=== PATIENT | male | born 1945 | race African-American/Black ===

== ENCOUNTER 2017-04-04 10:05 | Emergency (ER) | payer MEDICARE, BC ==
[2017-04-04 10:38] LABS: #Eosinphils 0.1 thou/uL (0.0-0.7); #Lymphocytes 1.2 thou/uL (1.20-3.40); #Monocytes 0.3 thou/uL (0.11-0.59); #Neutrophils 3.4 thou/uL (1.40-6.50); %Basophils 0.6 % (0.0-1.0); %Eosinophils 2.5 % (0.0-10.0); %Lymphocytes 23.8 % (21.0-51.0); %Monocytes 5.3 % (0.0-10.0); %Neutrophils 67.8 % (42.0-75.0); Hemoglobin 14.3 g/dL (14.0-18.0); Mean Corpuscular HGB CONC 32.6 g/dL (32.0-36.0); Mean Corpuscular Hemoglobin 29.1 pg (27.0-31.0); Mean Corpuscular Volume 89.3 fl (80.0-94.0); Mean Platelet Volume 9.4 fL (7.4-10.4); Platelet Count 145 thou/uL (130-400); RBC Distribution Width 12.7 % (11.5-14.5); Red Blood Cell (RBC) Count 4.91 mill/uL (4.70-6.10); White Blood Cell (WBC) Count 5.1 thou/uL (4.8-10.8)
--- NOTE | 2017-04-04 10:47 | RAD ---
PORTABLE AP CHEST: Date: 04/04/17 HISTORY: Dyspnea. Generalized pitting edema, which has worsened over the past 2 weeks. History of CHF. Patient has shortness of breath. COMPARISON: 01/05/16. FINDINGS: The cardiac silhouette and pulmonary vasculature are within normal limits. The lungs remain clear. Th ere has been no interval change from prior exam. IMPRESSION: No acute cardiopulmonary process. POS: [facility]
[2017-04-04 11:00] LABS: ALT (SGPT) 24 U/L (8-55); AST (SGOT) 20 U/L (5-34); Albumin 3.8 g/dL (3.4-4.8); Alkaline Phosphatase 166 U/L (40-150); Anion Gap 13 mmol/L (10-20); BUN (Urea Nitrogen) 12 mg/dL (8.4-25.7); Bilirubin, Total 0.5 mg/dL (0.2-1.2); CK (CPK) 245 U/L (30-200); Calc. Creatinine Clearance 0 mL/min (70-130); Calcium 9.3 mg/dL (7.8-10.44); Carbon Dioxide 26 mmol/L (23-31); Chloride 106 mmol/L (98-107); Estimated GFR-MDRD 44; Globulin 3.8 g/dL (2.4-3.5); Glucose 96 mg/dL (83-110); Potassium 3.3 mmol/L (3.5-5.1); Protein, Total 7.6 g/dL (5.8-8.1); Sodium 142 mmol/L (136-145)
[2017-04-04 11:06] LABS: CKMB 1.4 ng/mL (0-6.6); Troponin I 0.087 ng/mL (< 0.028)
--- NOTE | 2017-04-04 13:20 | ULT ---
ULTRASOUND WITH DOPPLER DUPLEX VENOUS LEFT UPPER EXTREMITY: Date: 04/04/17 HISTORY: 72-year-old male with left upper extremity edema for over 1 week. TECHNIQUE: Castro scale, color flow, and spectral analysis, of major veins of left upper extremity. All veins were subjected to compression, except for the subclavian. FINDINGS: The left cephalic vein is not visualized. The left radial, ulnar, basilar, brachial, axillary, subcla vian, and internal jugular veins are patent and clear. There is edema in the soft tissues. IMPRESSION: 1. No evidence of thrombosis of left upper extremity veins. 2. Soft tissue edema of the left upper extremity. 3. Left cephalic vein not visualized. POS: [facility]
--- NOTE | 2017-04-18 17:04 | EKG ---
Test Reason : Blood Pressure : / mmHG Vent. Rate : 062 BPM Atrial Rate : 062 BPM P-R Int : 214 ms QRS Dur : 094 ms QT Int : 448 ms P-R-T Axes : 053 -31 -05 degrees QTc Int : 454 ms Sinus rhythm with 1st degree A-V block Possible Left atrial enlargement Left axis deviation Inferior infarct , age undetermined Abnormal ECG Confirmed by MEMO PAL D.O. ([id number]), map editor CAMI LEE ([id number]) on 04/18/2017 5:04:02 PM Referred By: Confirmed By:MEMO PAL D.O.
== END 2017-04-04 13:15 | disposition home or self-care (01) ==
LOC: ERS 10:05
DX: I89.0 Lymphedema, not elsewhere classified (principal)
CPT/HCPCS: 36415; 71045; 80053; 82550; 82553; 83880; 84484; 85025; 93005

== ENCOUNTER 2017-06-23 18:56 | Observation (INO) | payer MEDICARE, BC ==
[2017-06-23] MEDS ORDERED: Furosemide 40 MG/4 ML VIAL ONE (20:12)
[2017-06-23 20:21] LABS: #Eosinphils 0.2 thou/uL (0.0-0.7); #Lymphocytes 1.5 thou/uL (1.20-3.40); #Monocytes 0.4 thou/uL (0.11-0.59); #Neutrophils 2.9 thou/uL (1.40-6.50); %Basophils 0.8 % (0.0-1.0); %Eosinophils 3.4 % (0.0-10.0); %Lymphocytes 30.2 % (21.0-51.0); %Monocytes 7.2 % (0.0-10.0); %Neutrophils 58.5 % (42.0-75.0); Hemoglobin 13.5 g/dL (14.0-18.0); Mean Corpuscular HGB CONC 32.6 g/dL (32.0-36.0); Mean Corpuscular Hemoglobin 28.7 pg (27.0-31.0); Mean Corpuscular Volume 87.8 fl (80.0-94.0); Mean Platelet Volume 9.6 fL (7.4-10.4); Platelet Count 148 thou/uL (130-400); RBC Distribution Width 12.6 % (11.5-14.5); Red Blood Cell (RBC) Count 4.72 mill/uL (4.70-6.10); White Blood Cell (WBC) Count 4.9 thou/uL (4.8-10.8)
--- NOTE | 2017-06-23 20:32 | RAD ---
PORTABLE UPRIGHT FRONTAL CHEST RADIOGRAPH 06/23/17 COMPARISON: 04/04/17 HISTORY: Fluid overload, edema, swelling and dyspnea. FINDINGS: Heart and mediastinal contours are stable. There is no pneumothorax, pleural fluid, focal consolidati on or alveolar edema. IMPRESSION: No acute findings. POS: [facility]
[2017-06-23 20:43] LABS: ALT (SGPT) 21 U/L (8-55); AST (SGOT) 22 U/L (5-34); Albumin 3.7 g/dL (3.4-4.8); Alkaline Phosphatase 142 U/L (40-150); Anion Gap 12 mmol/L (10-20); BUN (Urea Nitrogen) 10 mg/dL (8.4-25.7); Bilirubin, Total 0.7 mg/dL (0.2-1.2); CK (CPK) 333 U/L (30-200); Calc. Creatinine Clearance 0 mL/min (70-130); Carbon Dioxide 27 mmol/L (23-31); Chloride 104 mmol/L (98-107); Estimated GFR-MDRD 49; Globulin 3.6 g/dL (2.4-3.5); Glucose 92 mg/dL (83-110); Lipase 25 U/L (8-78); Protein, Total 7.3 g/dL (5.8-8.1); Sodium 140 mmol/L (136-145)
[2017-06-23 20:47] LABS: CKMB 1.3 ng/mL (0-6.6)
[2017-06-23 21:04] LABS: Potassium 2.8 mmol/L (3.5-5.1)
[2017-06-23] MEDS ORDERED: Potassium Chloride 20 MEQ TAB ONE (21:05)
[2017-06-23] MEDS ORDERED: Potassium Chloride 20 MEQ in Premix Bag 1 BAG IVPB SCH (21:15)
[2017-06-23] MEDS ORDERED: Acetaminophen 650 MG Suppository PR PRN (23:29)
[2017-06-23] MEDS ORDERED: Acetaminophen 325 MG TAB PO PRN (23:29)
[2017-06-23] MEDS ORDERED: Bisacodyl 5 MG TAB PO PRN (23:29)
--- NOTE | 2017-06-24 00:34 | HP ---
PRIMARY CARE PHYSICIAN: Dr. Winter Bailey. CHIEF COMPLAINT: Leg swelling. HISTORY OF PRESENT ILLNESS: Mr. Younger is a pleasant 72-year-old gentleman who was seen at [facility] on 06/23/2017. He reports that he has had bilateral lower extremity swelling for at least several months. It has be en progressively worsening. He also reports having left upper extremity swelling for several months. He reports pain in the left lower extremity, over the last several days, sharp, nonradiating, 1-2/1 0. No known aggravating or relieving factors, accompanied by swelling of both lower extremities. Ramón s reports that his lower extremity swelling progressed to his thighs. She therefore called his primary care provider and was advised to go to the emergency room. REVIEW OF SYSTEMS: All other systems were reviewed and noted to be negative except for the positives noted above. PAST MEDICAL HISTORY: Significant for recurrent TIA, chronic right lower extremity cellulitis, dysli pidemia, chronic kidney disease stage 3, chronic lymphedema, nonsustained ventricular tachycardia, di astolic dysfunction, first-degree AV block, dementia, CVA with residual left-sided weakness, rhabdomy olysis, dysphagia, thrombocytopenia, labile hypertension, and hypothyroidism. PAST SURGICAL HISTORY: Hernia repair and history of cyst removal from the hand. PSYCHIATRIC HISTORY: Anxiety and depression. SOCIAL HISTORY: Patient denies tobacco use, alcohol use, or recreational drug use. FAMILY HISTORY: Significant for heart disease in both his parents. ALLERGIES: No known drug allergies. CURRENT MEDICATIONS: Lisinopril 5 mg 2 times a day, atorvastatin 20 mg at bedtime, Protonix 40 mg da dylan, ferrous sulfate 325 mg daily, donepezil 10 mg daily, amlodipine 10 mg daily, clonidine 0.1 mg 2 times a day, levothyroxine 25 mcg daily. CODE STATUS: I discussed his code status. He is FULL CODE. Substitute decision maker is his . PHYSICAL EXAMINATION: GENERAL: Mr. Younger is awake and alert, not in acute distress. VITAL SIGNS: Blood pressure is 179/109, pulse is 83, he is breathing at rate of 17 and saturating 95 % on room air. He is afebrile. EYES: No scleral icterus, no conjunctival pallor. ENT: Moist mucosal membranes, no oropharyngeal erythema or exudates. NECK: Supple, nontender, normal range of movement, trachea is midline. I did not appreciate any jug ular venous distention. RESPIRATORY: Accessory muscles of breathing are not active. Chest wall movements are symmetric bila terally. Lungs are clear to auscultation without wheeze, rhonchi, or crepitations. CARDIOVASCULAR: S1 and S2 are heard, regular. Peripheral pulses palpable in the upper extremities. No carotid bruit, no pericardial rub. ABDOMEN: Soft, nontender, bowel sounds heard, no hepatomegaly, no splenomegaly. NEUROLOGIC: Cranial nerves II-XII intact. He has left-sided weakness. MUSCULOSKELETAL: Patient is able to move all 4 extremities. He has bilateral lower extremity lymphe tamela in the legs, he also has swelling of thighs bilaterally. SKIN: Lymphedema in both lower extremities. LYMPHATIC: No cervical lymphadenopathy. PSYCHIATRIC: Normal mood, normal affect, patient is oriented to person and place, not to time. LABORATORY DATA: Mr. Younger's labs and investigations were reviewed. I reviewed his electrocardiogra m, which shows sinus bradycardia, no ST changes to suggest an acute coronary syndrome. I also review ed his chest x-ray, which does not show any pulmonary infiltrates. He has a normal white count, norm ocytic anemia with hemoglobin 13.5, normal platelet count, normal sodium, decreased potassium of 2.8, normal blood urea nitrogen, elevated creatinine of 1.67, last known creatinine 1.85 in 03/2017, unre markable liver profile including normal albumin, normal lipase, slightly elevated BNP of 115.5, last known to BNP 71.5 in 03/2017 and indeterminate troponin of 0.100, I note that he has had indeterminat e troponins in the past as well and slightly elevated CK of 333. ASSESSMENT AND PLAN: Mr. Younger is a pleasant 72-year-old gentleman who was seen at [facility] on 06/23/2017. His problem list includes: 1. Hypokalemia: Etiology unclear. He is receiving potassium supplementation. We will recheck pota ssium level. 2. Bilateral leg swelling: He has chronic lymphedema with superimposed thigh swelling. We will pili at him with diuretics for now. Etiology is unclear. He does have a normal albumin. However, he als o has a history of chronic diastolic congestive heart failure. We will recheck his echocardiogram to look for any changes in the last couple of years in terms of his cardiac function. He also has kristen l failure, which could account for at least some of the swelling. 3. Rhabdomyolysis: Mild, recheck CK level. 4. Hypothyroidism: Continue thyroid replacement therapy, check TSH level. 5. Hypertension: Patient's blood pressure is currently elevated. Resume home medications, monitor vital signs and titrate antihypertensives as needed. Many thanks for allowing me to participate in your patient's care. Please feel free to contact me wi th any questions or concerns. LEVEL OF RISK: High. LEVEL OF COMPLEXITY: High.
[2017-06-24] MEDS ORDERED: hydrALAZINE 20 MG/ML VIAL ONE (00:48)
[2017-06-24 04:39] VITALS: BMI 28.3
[2017-06-24 06:21] LABS: #Eosinphils 0.2 thou/uL (0.0-0.7); #Lymphocytes 1.3 thou/uL (1.20-3.40); #Monocytes 0.5 thou/uL (0.11-0.59); #Neutrophils 2.8 thou/uL (1.40-6.50); %Basophils 0.4 % (0.0-1.0); %Eosinophils 3.6 % (0.0-10.0); %Lymphocytes 27.5 % (21.0-51.0); %Monocytes 9.4 % (0.0-10.0); Hemoglobin 13.5 g/dL (14.0-18.0); Mean Corpuscular HGB CONC 32.5 g/dL (32.0-36.0); Mean Corpuscular Hemoglobin 28.1 pg (27.0-31.0); Mean Corpuscular Volume 86.2 fl (80.0-94.0); Mean Platelet Volume 9.3 fL (7.4-10.4); Platelet Count 149 thou/uL (130-400); RBC Distribution Width 12.6 % (11.5-14.5); Red Blood Cell (RBC) Count 4.81 mill/uL (4.70-6.10); White Blood Cell (WBC) Count 4.8 thou/uL (4.8-10.8)
[2017-06-24] MEDS: Furosemide 40 MG/4 ML VIAL SLOW IVP SCH ×2 (06:30→14:26)
[2017-06-24 07:01] LABS: Anion Gap 11 mmol/L (10-20); BUN (Urea Nitrogen) 9 mg/dL (8.4-25.7); CK (CPK) 301 U/L (30-200); Calc. Creatinine Clearance 52 mL/min (70-130); Calcium 8.7 mg/dL (7.8-10.44); Carbon Dioxide 28 mmol/L (23-31); Chloride 107 mmol/L (98-107); Estimated GFR-MDRD 55; Glucose 86 mg/dL (83-110); Sodium 143 mmol/L (136-145)
[2017-06-24] MEDS: Heparin 5,000 UNITS/ML VIAL SC SCH ×2 (08:27→14:26)
[2017-06-24] MEDS ORDERED: Potassium Chloride 20 MEQ TAB PO SCH (10:30)
--- NOTE | 2017-06-24 11:53 | ULT ---
ULTRASOUND WITH DOPPLER DUPLEX VENOUS LOWER EXTREMITIES BILATERAL: HISTORY: 72-year-old male with bilateral lower extremity pain. TECHNIQUE: Color flow Doppler, spectral waveform analysis of pulsed Doppler, and jaramillo-scale imaging with elinor timoteo and augmentation, were used to evaluate the bilateral common femoral, femoral, popliteal, food mixer repairer ior tibial, and superficial femoral, veins; and the proximal portions of the profunda femoral and gre ater saphenous, veins. FINDINGS: There is normal compressibility, demonstration of blood flow by color Doppler and pulsed Doppler, and response to augmentation, in all interrogated veins. There is soft tissue edema in the bilateral low er extremities. IMPRESSION: 1. No deep vein thrombosis in the bilateral lower extremities. 2. Soft tissue edema of the bilateral lower extremities. michael POS: [facility]
--- NOTE | 2017-06-24 12:13 | PDOC.PN ---
- Subjective Encounter Start Date: 06/24/17 Encounter Start Time: 12:11 Mr. Younger was seen today in follow-up of lower extremity swelling. He says his legs are much better this morning, and would like to go home. - Objective Resuscitation Status: Resuscitation Status FULL:Full Resuscitation MAR Reviewed: Yes Vital Signs & Weight: Vital Signs (12 hours) Temp Pulse Resp BP Pulse Ox 06/24/17 12:00 98.3 F 75 16 148/81 H 99 06/24/17 08:00 97.8 F 67 16 134/80 95 06/24/17 04:39 98.2 F 66 16 165/101 H 95 06/24/17 02:09 95 06/24/17 01:13 97.6 F 81 18 176/97 H 96 Weight Weight 180 lb 9.6 oz I&O: 06/23/17 06/24/17 06/25/17 06:59 06:59 06:59 Intake Total 205 Output Total 1620 Balance -1415 Result Diagrams: 06/24/17 05:29 06/24/17 05:29 Phys Exam - Physical Examination Constitutional: NAD HEENT: PERRLA, sclera anicteric Respiratory: no wheezing, no rales, no rhonchi, clear to auscultation bilateral Cardiovascular: RRR, no significant murmur, no rub Gastrointestinal: soft, non-tender, no distention, positive bowel sounds Musculoskeletal: edema present + massive lower extremity edema, and dry skin, and venous stasis changes Dx/Plan (1) Chronic venous stasis dermatitis of both lower extremities Code(s): I87.2 - VENOUS INSUFFICIENCY (CHRONIC) (PERIPHERAL) Status: Acute (2) Acute on chronic diastolic heart failure Code(s): I50.33 - ACUTE ON CHRONIC DIASTOLIC (CONGESTIVE) HEART FAILURE Status : Acute (3) Hypertension Code(s): I10 - ESSENTIAL (PRIMARY) HYPERTENSION Status: Acute - Plan * Acute on chronic diastolic heart failure- improved with diuresis * Awaiting Echo- * Lower extremity doppler is pending * HTN- blood pressure is better * Hypokalemia- replace Potassium * Chronic venous- discussed the need to wear compression stockings daily, and proper skin care * Hopefully home later today if venous doppler is negative for DVT .
[2017-06-24] MEDS ORDERED: Ammonium Lactate 12% Lotion 225 GM BOT TOP SCH (12:15)
--- NOTE | 2017-06-24 14:00 | DIS ---
PRIMARY CARE PHYSICIAN: Dr. Bailey DISCHARGE DISPOSITION: Home. PRIMARY DISCHARGE DIAGNOSES: 1. Acute on chronic diastolic heart failure. 2. Chronic lower extremity venous stasis dermatitis. 3. Chronic kidney disease stage 3. 4. History of ventricular tachycardia. 5. History of cerebrovascular accident with left-sided weakness. 6. Hypertension. 7. Hypothyroidism. DISCHARGE MEDICATIONS: Potassium chloride 10 mEq daily, Protonix 40 mg daily, lisinopril 5 mg twice daily, levothyroxine 25 mcg daily, Apresoline 50 mg twice a day, Lasix 20 mg only as needed for leg s welling. Iron sulfate 325 mg daily, Aricept 10 mg daily, Catapres 1 tablet twice a day, Lipitor 20 m g at bedtime, and amlodipine 10 mg daily. PROCEDURES DONE DURING ADMISSION: The patient had lower extremity venous Doppler which was negative for deep vein thrombosis in either lower extremity. The patient also had an echocardiogram, which wa s pending at the time of discharge. CODE STATUS: Full code. ALLERGIES: No known drug allergies. HOSPITAL COURSE: Mr. Younger is a pleasant 72-year-old gentleman who presented to the emergency room c omplaining of progressive lower extremity edema. He had noticed it getting worse over the last few m onths and then started having some discomfort in his legs. His primary care physician told him to go to the emergency room. He was found to have esteban anasarca and he was given a dose of IV Lasix and actually overnight diuresed well with almost 2 liters output of fluid. In further discussion with day queen patient, he admits that he has been noncompliant with wearing his compression stockings. He says pierre queen just basically does not want to do it even though his has encouraged him to do this as well. He also has some type of cream to help with the venous stasis dermatitis, which he also does not use. I asked him more about this and it appears as if he may have some difficulty reaching his legs and as a result, we are going to have him evaluated for home health to see if they can aide with helping to care for his legs with regards to applying the compression stockings as well as the lubricant crea m such as Lac-Hydrin. The patient says he thinks he could be more compliant. Therefore, he will be discharged home with close outpatient followup.
[2017-06-24 15:42] VITALS: BP 155/95; TEMP 98
[2017-06-24] MEDS ORDERED: TROSPIUM 20 MG TABLET PO SCH (21:00)
[2017-06-24] MEDS ORDERED: hydrALAZINE 25 MG TAB PO SCH (21:00)
[2017-06-24] MEDS ORDERED: Donepezil HCl 10 MG TAB PO SCH (21:00)
[2017-06-25] MEDS ORDERED: Levothyroxine Sodium 25 MCG TAB PO SCH (06:00)
[2017-06-25] MEDS ORDERED: Ferrous Sulfate 325 MG TAB PO SCH (08:00)
== END 2017-06-24 17:48 | disposition home health service (06) ==
LOC: ERS 18:56 → 2SE 21:20
PROVIDERS: ADMIT Internal Medicine; ATTEND Internal Medicine
DX: I87.2 Venous insufficiency (chronic) (peripheral) (principal); R60.1 Generalized edema; E87.6 Hypokalemia; I13.0 Hypertensive heart and chronic kidney disease with heart failure and stage 1 through stage 4 chronic kidney disease, or unspecified chronic kidney disease; N18.3 Chronic kidney disease, stage 3 (moderate); I50.33 Acute on chronic diastolic (congestive) heart failure; I47.2 Ventricular tachycardia; E03.9 Hypothyroidism, unspecified; I69.954 Hemiplegia and hemiparesis following unspecified cerebrovascular disease affecting left non-dominant side; M62.82 Rhabdomyolysis; F32.9 Major depressive disorder, single episode, unspecified; F41.9 Anxiety disorder, unspecified; Z79.899 Other long term (current) drug therapy; Z98.890 Other specified postprocedural states
CPT/HCPCS: 71045; 80048; 82550 ×2; 82553; 83690; 83880; 84439; 84484; 85025; 93005; 93970; 94760; 96365; 96366; 96375; 96376; 99285; G0378; 36415; 80053; 84443; J0360; J1644; J1940; J3480

== ENCOUNTER 2017-12-16 13:33 | Outpatient (CLI) | payer MEDICARE, BC ==
--- NOTE | 2017-12-16 15:09 | HP ---
DATE OF SERVICE: 12/16/2017. HISTORY OF PRESENT ILLNESS: Mr. César Younger is a very pleasant 72-year-old gentleman who presented [facility] for evaluation of lymphedema of the right and left lower extremities. The patien navi was referred to the Wound Center by Dr. Bailey on 11/26/2017. The patient states that he has been prescribed compression garments in the past. The patient has no other complaints today. He denies any fever or chills. PAST MEDICAL HISTORY: 1. History of cerebrovascular accidents. 2. Hypertension. 3. Benign prostatic hypertrophy. 4. Diastolic dysfunction. 5. Dementia. PAST SURGICAL HISTORY: 1. Excision of lesion of scalp. 2. Hernia repair. MEDICATIONS: 1. Lisinopril. 2. Atorvastatin. 3. Iron. 4. Levothyroxine. 5. Protonix. 6. Amlodipine. 7. Clonidine. 8. Donepezil. 9. VESIcare. ALLERGIES: No known diagnosed allergies. SOCIAL HISTORY: Negative for current tobacco or ETOH use. FAMILY HISTORY: Significant for coronary artery disease in the patient's mother and father where bot h diagnosed with coronary artery disease. PHYSICAL EXAMINATION: VITAL SIGNS: Temperature 97.7, pulse 83, respirations 19, blood pressure 172/96. GENERAL: A 72-year-old gentleman sitting on chair in examination room in no acute distress. HEENT: Normocephalic, atraumatic. NECK: No nuchal rigidity. CHEST: Clear to auscultation. CARDIAC: Regular rate and rhythm. ABDOMEN: Soft. EXTREMITIES: Lymphedema of the right and left lower extremities is present. No open wounds are pres ent on exam today. Circumferences of the right lower extremity at the ankle, calf and knee are: 40. 5 cm, 53 cm, and 51 cm. Circumferences of the left lower extremity at the ankle, calf and knee are: 32 cm, 46 cm, and 49 cm. ASSESSMENT AND PLAN: 1. Lymphedema tarda. Arrangements will be made for the initiation of in-home lymphedema therapy wit h a pneumatic pump. The patient states he has been prescribed compression garments in the past but h as been unable to utilize them consistently because of the degree of his lymphedema. I will see Mr. Younger again on 12/24/2017 and at this time, arrangements will be continued for the acquisition of a p neumatic pump. The patient understands and is in agreement with the preceding treatment plan. 2. CVAs. 3. Hypertension. 4. Benign prostatic hypertrophy. 5. Diastolic dysfunction. 6. Dementia.
== END 2017-12-16 13:34 | disposition home or self-care (01) ==
LOC: WCC 13:33
PROVIDERS: ATTEND Family Medicine
DX: I89.0 Lymphedema, not elsewhere classified (principal); I63.9 Cerebral infarction, unspecified; I10 Essential (primary) hypertension; N40.0 Benign prostatic hyperplasia without lower urinary tract symptoms; I51.89 Other ill-defined heart diseases; F03.90 Unspecified dementia, unspecified severity, without behavioral disturbance, psychotic disturbance, mood disturbance, and anxiety
CPT/HCPCS: 97139; 97602; G0463; 99203

== ENCOUNTER 2017-12-24 11:27 | Outpatient (CLI) | payer MEDICARE, BC ==
--- NOTE | 2017-12-24 12:13 | PRG ---
DATE OF SERVICE: 12/24/2017 HISTORY: Mr. César Younger is a very pleasant 72-year-old gentleman who presents to the [facility] for evaluation of lymphedema of the right and left lower extremities. The patient was referred to [facility] by Dr. Bailey on 11/26/2017. The patient previously stated that he had been prescrib ed compression garments in the past. Mr. Younger has no complaints today. He denies any fever or chil ls. PHYSICAL EXAMINATION: VITAL SIGNS: Temperature 97.5, pulse 65, respirations 20, blood pressure 160/94. EXTREMITIES: Lymphedema of the right and left lower extremities is noted on exam today. Circumferen lillie of the right lower extremity at the ankle, calf and knee are 37 cm, 57 cm, and 53 cm. Circumfere nces of the left lower extremity at the ankle, calf and knee are 34 cm, 53 cm, and 50 cm. ASSESSMENT AND PLAN: 1. Lymphedema tarda. Arrangements will continue for the initiation of in-home lymphedema therapy wi a pneumatic pump. As stated above, the patient reported that he had been prescribed compression g arments in the past. He stated that he had been unable to utilize the compression garments consisten tly, because of the degree of his lymphedema. I will see Mr. Younger again on 01/21/2018 and at this t hawk, arrangements will continue for the acquisition of a pneumatic pump. 2. History of cerebrovascular accidents. 3. Hypertension. 4. Benign prostatic hypertrophy. 5. Diastolic dysfunction. 6. Dementia.
== END 2017-12-24 11:28 | disposition home or self-care (01) ==
LOC: WCC 11:27
PROVIDERS: ATTEND Family Medicine
DX: I89.0 Lymphedema, not elsewhere classified (principal); N40.0 Benign prostatic hyperplasia without lower urinary tract symptoms; I10 Essential (primary) hypertension; I51.89 Other ill-defined heart diseases; F03.90 Unspecified dementia, unspecified severity, without behavioral disturbance, psychotic disturbance, mood disturbance, and anxiety; Z86.73 Personal history of transient ischemic attack (TIA), and cerebral infarction without residual deficits
CPT/HCPCS: 97602

== ENCOUNTER 2018-02-10 17:05 | Emergency (ER) | payer MEDICARE, BC ==
--- NOTE | 2018-02-10 18:08 | RAD ---
LEFT SHOULDER RADIOGRAPHS THREE VIEWS: Date: 02-10-18 Provided Clinical History: Trauma. FINDINGS: No evidence for fracture or other acute osseous abnormality. If there is persistent clinical concern, conservative management and follow up imaging are advised. IMPRESSION: As above. POS: [facility]
--- NOTE | 2018-02-10 18:11 | RAD ---
PELVIC RADIOGRAPH: Date: 02-10-18 Provided Clinical History: Trauma. FINDINGS: There is no evidence for fracture or other acute osseous abnormality. If there is persistent clinical concern, conservative management and follow up imaging are advised. IMPRESSION: As above. POS: [facility]
--- NOTE | 2018-02-10 18:43 | CT ---
CT BRAIN 02/10/18 PROVIDED CLINICAL HISTORY: Low back pain status post fall. FINDINGS: Comparison 02/25/16. The ventricular system is unchanged in size and morphology. There is no evidence for intracranial hem orrhage or mass effect. Chronic ischemic changes appear similar to the prior study. The extracranial soft tissues and osseous structures demonstrate an unremarkable CT appearance. IMPRESSION: No evidence for intracranial hemorrhage or mass effect. POS: [facility]
--- NOTE | 2018-02-10 18:48 | RAD ---
THORACIC SPINE RADIOGRAPHS THREE VIEWS 02/10/18 PROVIDED CLINICAL HISTORY: Trauma. FINDINGS: Thoracic alignment appears normal. Thoracic vertebral body heights appear preserved. Thoracic disc de generative changes are seen. Mild right convexity thoracic curvature. IMPRESSION: No radiographic evidence for an acute osseous abnormality. POS: [facility]
== END 2018-02-10 18:38 | disposition home or self-care (01) ==
LOC: ERS 17:05
DX: S40.012A Contusion of left shoulder, initial encounter (principal); M54.6 Pain in thoracic spine; R60.0 Localized edema; I11.0 Hypertensive heart disease with heart failure; I50.9 Heart failure, unspecified; E78.00 Pure hypercholesterolemia, unspecified; F03.90 Unspecified dementia, unspecified severity, without behavioral disturbance, psychotic disturbance, mood disturbance, and anxiety; Z79.899 Other long term (current) drug therapy; W19.XXXA Unspecified fall, initial encounter
CPT/HCPCS: 70450; 72072; 72170

== ENCOUNTER 2018-03-26 12:36 | Emergency (ER) | payer MEDICARE, BC ==
[2018-03-26 13:45] LABS: #Basophils 0.1 thou/uL (0.0-0.2); #Eosinphils 0.1 thou/uL (0.0-0.7); #Lymphocytes 1.3 thou/uL (1.20-3.40); #Monocytes 0.5 thou/uL (0.11-0.59); #Neutrophils 3.9 thou/uL (1.40-6.50); %Basophils 0.9 % (0.0-1.0); %Lymphocytes 22.3 % (21.0-51.0); %Monocytes 8.1 % (0.0-10.0); %Neutrophils 66.8 % (42.0-75.0); Hemoglobin 14.7 g/dL (14.0-18.0); Mean Corpuscular Hemoglobin 27.1 pg (27.0-31.0); Mean Corpuscular Volume 87.5 fL (78.0-98.0); Mean Platelet Volume 9.8 fL (7.4-10.4); Platelet Count 140 thou/uL (130-400); RBC Distribution Width 13.7 % (11.5-14.5); Red Blood Cell (RBC) Count 5.41 mill/uL (4.70-6.10); White Blood Cell (WBC) Count 5.8 thou/uL (4.8-10.8)
[2018-03-26 14:10] LABS: ALT (SGPT) 18 U/L (8-55); AST (SGOT) 22 U/L (5-34); Albumin 3.8 g/dL (3.4-4.8); Alkaline Phosphatase 143 U/L (40-150); Anion Gap 14 mmol/L (10-20); BUN (Urea Nitrogen) 9 mg/dL (8.4-25.7); Bilirubin, Total 0.6 mg/dL (0.2-1.2); Calc. Creatinine Clearance 0 mL/min (70-130); Carbon Dioxide 22 mmol/L (23-31); Chloride 108 mmol/L (98-107); Estimated GFR-MDRD 54; Globulin 3.9 g/dL (2.4-3.5); Glucose 108 mg/dL (83-110); Lipase 48 U/L (8-78); Potassium 3.4 mmol/L (3.5-5.1); Protein, Total 7.7 g/dL (5.8-8.1); Sodium 141 mmol/L (136-145)
[2018-03-26] MEDS ORDERED: Ondansetron PF 4 MG/2 ML Vial ONE (14:15)
[2018-03-26] MEDS ORDERED: Morphine 4 MG/ML VIAL ONE (14:15)
[2018-03-26 14:20] LABS: CKMB 2.2 ng/mL (0-6.6)
[2018-03-26 15:34] LABS: Bilirubin Negative (Negative); Blood, Urine Trace (Negative); Clarity Clear (Clear); Glucose, Urine (Dipstick) Negative (Negative); Leukocyte Negative (Negative); Nitrite Negative (Negative); Protein, Urine (Dipstick) Negative (Neg-Trace); Specific Gravity, Urine 1.015 (1.005-1.030); Urobilinogen 0.2 mg/dL (0.2-1.0)
--- NOTE | 2018-03-26 15:37 | CT ---
CT ABDOMEN AND PELVIS WITH IV CONTRAST: Date: 03/26/18 HISTORY: Abdominal pain. Nausea and vomiting. COMPARISON: 07/04/16. FINDINGS: Mild atelectasis at the lung bases. The liver, spleen, kidneys, adrenal glands, and pancreas have a n ormal CT appearance. No evidence of bowel or appendiceal inflammation. Small pocket of fluid at the r ight internal inguinal ring is stable compared to the prior study. No adjacent inflammation. There ar e degenerative changes of the lumbar spine. IMPRESSION: Chronic-type findings are stable. No acute abnormalities are demonstrated. POS: [facility]
[2018-03-26 15:40] LABS: RBC/HPF 0-3 HPF (0-3); Squamous Epithelial 0-3 HPF (0-3); WBC/HPF 0-3 HPF (0-3)
== END 2018-03-26 15:52 | disposition home or self-care (01) ==
LOC: SCSER 12:36
DX: R11.2 Nausea with vomiting, unspecified (principal); R19.7 Diarrhea, unspecified; R10.9 Unspecified abdominal pain; I11.0 Hypertensive heart disease with heart failure; I50.9 Heart failure, unspecified; F03.90 Unspecified dementia, unspecified severity, without behavioral disturbance, psychotic disturbance, mood disturbance, and anxiety; Z86.73 Personal history of transient ischemic attack (TIA), and cerebral infarction without residual deficits; Z79.899 Other long term (current) drug therapy
CPT/HCPCS: 74177; 80053; 81003; 81015; 82553; 83690; 84484; 85025; 93005; 96361; 96374; 96375; J2270; J2405

== ENCOUNTER 2018-04-29 14:10 | Outpatient (CLI) | payer MEDICARE, BC ==
--- NOTE | 2018-04-29 11:27 | PRG ---
DATE OF SERVICE: 04/29/2018 HISTORY: Mr. César Younger is a very pleasant 73-year-old gentleman, who presents to the [facility] for evaluation of lymphedema of the right and left lower extremities. The patient was referred to the [facility] by Dr. Bailey on 11/26/2017. The patient previously stated that he had been prescribed compression garments in the past. He states that he is no longer able to use his compression garments, because of the degree of lymphedema present. The patient has no other complaints today. He denies any fever or chills. PHYSICAL EXAMINATION: VITAL SIGNS: Temperature 97.8, pulse 53, respirations 17, blood pressure 163/80. EXTREMITIES: Lymphedema of the right and left lower extremities is noted on today's exam. Circumferences of the right lower extremity at the foot, ankle, calf, and knee are 32 cm, 39 cm, 58 cm and 52 cm. Circumferences of the left lower extremity at the foot, ankle, calf, and knee are 33 cm, 34.5 cm, 53 cm, and 51 cm. SKIN: Hyperpigmentation of the skin of the right and left lower legs is again noted on today's exam. ASSESSMENT AND PLAN: 1. Lymphedema tarda. Arrangements will continue for the initiation of lymphedema therapy with a pneumatic pump. The patient has continued to have lymphedema despite consistent elevation of his legs since his last appointment. I will see Mr. Younger again on 05/27/2018. 2. History of cerebrovascular accidents. 3. Hypertension. 4. Benign prostatic hypertrophy. 5. Diastolic dysfunction. 6. Dementia. Job ID: [id number]
[2018-04-29] MEDS ORDERED: Sodium Chloride 0.9% 15 ML NEB ONE (18:00)
== END 2018-04-29 14:11 | disposition home or self-care (01) ==
LOC: WCC 14:10
PROVIDERS: ATTEND Family Medicine
DX: I89.0 Lymphedema, not elsewhere classified (principal); I11.9 Hypertensive heart disease without heart failure; N40.0 Benign prostatic hyperplasia without lower urinary tract symptoms; F03.90 Unspecified dementia, unspecified severity, without behavioral disturbance, psychotic disturbance, mood disturbance, and anxiety; Z86.73 Personal history of transient ischemic attack (TIA), and cerebral infarction without residual deficits
CPT/HCPCS: 97602; A4218

== ENCOUNTER 2018-05-27 15:19 | Outpatient (CLI) | payer MEDICARE, BC ==
--- NOTE | 2018-05-27 17:08 | PRG ---
DATE OF SERVICE: 05/27/2018 HISTORY: Mr. César Younger is a very pleasant 73-year-old gentleman, who presents to the wound center for evaluation of lymphedema of the right and left lower extremities. The patient was referred to the wound center by Dr. Bailey on 11/26/2017. The patient previously stated that he had been prescribed compression garments in the past. He stated that he was no longer able to use his compression garments because of the degree of lymphedema present. The patient states he has developed wounds of his right lower extremity. He has no other complaints today. He denies any fever or chills. PHYSICAL EXAMINATION: VITAL SIGNS: Temperature 97.7, pulse 65, respirations 18, and blood pressure 143/94. EXTREMITIES: Lymphedema of the right and left lower extremities is noted on exam today. Multiple wounds of the right lower leg are present. Granulation tissue is present within the wound margins. No purulent drainage is associated with any of the wounds. No erythema of the skin surrounding any of the wounds is present. No maceration of the skin of the periwound of any of the wounds is noted. ASSESSMENT AND PLAN: 1. Lymphedema tarda. The patient has received his pneumatic pump for the wounds of the right lower leg, dressing changes of Xeroform gauze followed by an ABD and Kerlix will be initiated today. These dressing changes are to be performed 3 times per week after cleansing and irrigation with the assistance of home health. The patient is to continue to utilize his FarrowWrap in conjunction with the preceding dressing changes. I will see Mr. Younger again in 4 weeks. 2. History of cerebrovascular accident. 3. Hypertension. 4. Benign prostatic hypertrophy. 5. Diastolic dysfunction. 6. Dementia. Job ID: [id number]
[2018-05-27] MEDS ORDERED: Sodium Chloride 0.9% 15 ML NEB ONE (18:00)
== END 2018-05-27 15:20 | disposition home or self-care (01) ==
LOC: WCC 15:19
PROVIDERS: ATTEND Family Medicine
DX: I89.0 Lymphedema, not elsewhere classified (principal); I11.9 Hypertensive heart disease without heart failure; F03.90 Unspecified dementia, unspecified severity, without behavioral disturbance, psychotic disturbance, mood disturbance, and anxiety; N40.0 Benign prostatic hyperplasia without lower urinary tract symptoms; Z86.73 Personal history of transient ischemic attack (TIA), and cerebral infarction without residual deficits
CPT/HCPCS: A4218

== ENCOUNTER 2018-07-29 12:23 | Outpatient (CLI) | payer MEDICARE, BC ==
--- NOTE | 2018-07-29 18:30 | PRG ---
DATE OF SERVICE: 07/29/2018 HISTORY: Mr. César Younger is a very pleasant 73-year-old gentleman, accompanied by his , who presents to the [facility] for evaluation of lymphedema of the right and left lower extremities. The patient was referred to the Wound Center by Dr. Bailey on 11/26/2017. Previously, the patient stated that he had been prescribed compression garments in the past. He stated that he was no longer able to use his compression garments because of the degree of lymphedema present. At the time of the patient's last visit, Mr. Younger stated that he had developed wounds of his right lower extremity PHYSICAL EXAMINATION: VITAL SIGNS: Temperature 97.5, pulse 62, respirations 24, blood pressure 165/85. EXTREMITIES: Lymphedema of the right and left lower extremities is noted on exam today. All wounds of the right lower leg have healed completely. ASSESSMENT AND PLAN: 1. Lymphedema tarda. The patient has received a pneumatic pump. As stated above, the multiple wounds of the right lower leg noted at the time of the patient's last visit have healed completely. The patient is receiving lymphedema therapy through his home health agency. I will discuss beginning physical therapy with the patient's primary care physician, Dr. Bailey. I will see Mr. Younger again on 09/02/2018. 2. History of cerebrovascular accident. 3. Hypertension. 4. Benign prostatic hypertrophy. 5. Diastolic dysfunction. 6. Dementia. Job ID: [id number]
== END 2018-07-29 12:24 | disposition home or self-care (01) ==
LOC: WCC 12:23
PROVIDERS: ATTEND Family Medicine
DX: I89.0 Lymphedema, not elsewhere classified (principal); I10 Essential (primary) hypertension; N40.0 Benign prostatic hyperplasia without lower urinary tract symptoms; F03.90 Unspecified dementia, unspecified severity, without behavioral disturbance, psychotic disturbance, mood disturbance, and anxiety; Z86.73 Personal history of transient ischemic attack (TIA), and cerebral infarction without residual deficits
CPT/HCPCS: 97139; G0463; 99213

== ENCOUNTER 2019-01-24 17:56 | Emergency (ER) | payer MEDICARE, BC ==
[2019-01-24 20:37] LABS: Bilirubin Negative (Negative); Blood, Urine Negative (Negative); Clarity Clear (Clear); Glucose, Urine (Dipstick) Normal (Negative); Leukocyte Negative Leu/uL (Negative); Nitrite Negative (Negative); Protein, Urine (Dipstick) 10 mg/dL (Neg-Trace); Urobilinogen Normal mg/dL (Less than 2)
[2019-01-24] MEDS ORDERED: HYDROcodone/Acetaminophen 10/325 mg Tablet ONE (20:49)
[2019-01-24 20:57] LABS: #Eosinphils 0.2 thou/uL (0.0-0.7); #Lymphocytes 1.2 thou/uL (1.20-3.40); #Monocytes 0.5 thou/uL (0.11-0.59); #Neutrophils 4.7 thou/uL (1.40-6.50); %Basophils 0.5 % (0.0-1.0); %Eosinophils 2.5 % (0.0-10.0); %Lymphocytes 18.5 % (21.0-51.0); %Monocytes 8.2 % (0.0-10.0); %Neutrophils 70.4 % (42.0-75.0); Hemoglobin 13.5 g/dL (14.0-18.0); Mean Corpuscular HGB CONC 33.2 g/dL (32.0-36.0); Mean Corpuscular Hemoglobin 28.8 pg (27.0-31.0); Mean Corpuscular Volume 86.9 fL (78.0-98.0); Mean Platelet Volume 8.9 fL (7.4-10.4); Platelet Count 162 thou/uL (130-400); RBC Distribution Width 12.4 % (11.5-14.5); Red Blood Cell (RBC) Count 4.68 mill/uL (4.70-6.10); White Blood Cell (WBC) Count 6.6 thou/uL (4.8-10.8)
[2019-01-24 21:18] LABS: ALT (SGPT) 10 U/L (8-55); AST (SGOT) 15 U/L (5-34); Albumin 3.6 g/dL (3.4-4.8); Alkaline Phosphatase 133 U/L (40-110); Anion Gap 11 mmol/L (10-20); BUN (Urea Nitrogen) 9 mg/dL (8.4-25.7); Bilirubin, Total 0.8 mg/dL (0.2-1.2); Calc. Creatinine Clearance 0 mL/min (70-130); Carbon Dioxide 27 mmol/L (23-31); Chloride 104 mmol/L (98-107); Estimated GFR-MDRD 50; Globulin 3.7 g/dL (2.4-3.5); Glucose 104 mg/dL (83-110); Potassium 3.4 mmol/L (3.5-5.1); Protein, Total 7.3 g/dL (5.8-8.1); Sodium 139 mmol/L (136-145)
--- NOTE | 2019-01-24 22:23 | ULT ---
EXAM: Bilateral lower extremity venous ultrasound HISTORY: Edema. Pain. COMPARISON: 06/24/2017 TECHNIQUE: Multiplanar grayscale and color Doppler images were obtained in a bilateral lower extremit y venous ultrasound. Spectral analysis of the Doppler waveforms were performed. FINDINGS: The bilateral common femoral vein, profunda femoral veins, superficial femoral veins, and p opliteal veins are normal in appearance without visible thrombus. These vessels demonstrate normal compression, flow, and augmentation. The bilateral profunda femoral veins and greater saphenous veins are patent without evidence of throm bus. Limited evaluation of posterior tibial veins due to overlying bandage material. There is evidence of soft tissue edema. IMPRESSION: No evidence of DVT in the visualized left or right lower extremity venous system. Soft tissue edema b ilaterally.
== END 2019-01-24 22:31 | disposition home or self-care (01) ==
LOC: ERS 17:56
DX: M54.9 Dorsalgia, unspecified (principal); G89.29 Other chronic pain; M79.89 Other specified soft tissue disorders; K04.7 Periapical abscess without sinus; I10 Essential (primary) hypertension; E78.00 Pure hypercholesterolemia, unspecified; F03.90 Unspecified dementia, unspecified severity, without behavioral disturbance, psychotic disturbance, mood disturbance, and anxiety; Z86.73 Personal history of transient ischemic attack (TIA), and cerebral infarction without residual deficits; Z79.899 Other long term (current) drug therapy
CPT/HCPCS: 36415; 80053; 81003; 85025; 85379; 93970

== ENCOUNTER 2019-02-25 17:43 | Emergency (ER) | payer MEDICARE, BC ==
[2019-02-25 21:05] LABS: #Eosinphils 0.1 thou/uL (0.0-0.7); #Lymphocytes 1.5 thou/uL (1.20-3.40); #Monocytes 0.4 thou/uL (0.11-0.59); %Basophils 0.5 % (0.0-1.0); %Eosinophils 1.6 % (0.0-10.0); Hemoglobin 15.5 g/dL (14.0-18.0); Mean Corpuscular HGB CONC 33.4 g/dL (32.0-36.0); Mean Corpuscular Hemoglobin 29.1 pg (27.0-31.0); Mean Corpuscular Volume 87.3 fL (78.0-98.0); Platelet Count 167 thou/uL (130-400); RBC Distribution Width 12.8 % (11.5-14.5); Red Blood Cell (RBC) Count 5.31 mill/uL (4.70-6.10)
--- NOTE | 2019-02-25 21:17 | RAD ---
XR Foot Lt 3 View STANDARD HISTORY: Toenail fell off evaluation for osteomyelitis. COMPARISON: None. FINDINGS: The bones are demineralized. No plain film evidence for osteomyelitis. No fracture. IMPRESSION: No plain film evidence of osteomyelitis.
[2019-02-25 21:19] LABS: ALT (SGPT) 15 U/L (8-55); AST (SGOT) 18 U/L (5-34); Albumin 4.1 g/dL (3.4-4.8); Alkaline Phosphatase 157 U/L (40-110); Anion Gap 14 mmol/L (10-20); BUN (Urea Nitrogen) 10 mg/dL (8.4-25.7); Bilirubin, Total 0.8 mg/dL (0.2-1.2); CRP (Inflammatory) 1.34 mg/dL (= or < 0.5); Calc. Creatinine Clearance 0 mL/min (70-130); Calcium 9.4 mg/dL (7.8-10.44); Carbon Dioxide 25 mmol/L (23-31); Chloride 105 mmol/L (98-107); Estimated GFR-MDRD 54; Globulin 4.3 g/dL (2.4-3.5); Glucose 110 mg/dL (83-110); Potassium 3.4 mmol/L (3.5-5.1); Protein, Total 8.4 g/dL (5.8-8.1); Sodium 141 mmol/L (136-145)
[2019-02-25] MEDS ORDERED: Furosemide 40 MG TAB ONE (22:16)
== END 2019-02-25 22:28 | disposition home or self-care (01) ==
LOC: ERS 17:43
DX: I89.0 Lymphedema, not elsewhere classified (principal); I11.0 Hypertensive heart disease with heart failure; I50.9 Heart failure, unspecified; E78.00 Pure hypercholesterolemia, unspecified; F03.90 Unspecified dementia, unspecified severity, without behavioral disturbance, psychotic disturbance, mood disturbance, and anxiety; Z79.899 Other long term (current) drug therapy; Z95.5 Presence of coronary angioplasty implant and graft
CPT/HCPCS: 36415; 80053; 85025; 85652; 86140

== ENCOUNTER 2020-01-12 15:18 | Outpatient (CLI) | payer MEDICARE, BC ==
--- NOTE | 2020-01-12 16:48 | ULT ---
ULTRASOUND TESTICULAR WITH DOPPLER: Date: 01/12/2020 HISTORY: Bilateral testicular pain. COMPARISON: None. FINDINGS: Right testicle measures 3.1 x 2.2 x 1.7 cm. Left testicle measures 3.1 x 2.2 x 2.0 cm. Adequate vascular flow to both testicles. No underlying testicular mass. Echotexture is normal. Small cyst at the right epididymal head. Small to moderate left hydrocele. Moderate left varicocele. Small left testicular appendage. IMPRESSION: 1. Adequate vascular flow and normal echotexture of both testicles without mass. 2. Moderate left varicocele with mildly thickened skin and congestive changes. Underlying cellulitis is also a possibility given the skin and subcutaneous skin thickening which is mildly asymmetric. 3. Small to moderate left hydrocele. POS: AH
== END 2020-01-12 15:19 | disposition home or self-care (01) ==
LOC: BICULT 15:18
PROVIDERS: ATTEND Family Medicine
DX: N50.812 Left testicular pain (principal); N50.811 Right testicular pain; I86.1 Scrotal varices; N43.3 Hydrocele, unspecified; R23.4 Changes in skin texture; R93.89 Abnormal findings on diagnostic imaging of other specified body structures
CPT/HCPCS: 76870; 93976

== ENCOUNTER 2020-04-13 13:39 | Inpatient (IN) | payer MEDICARE, BC ==
[~2020-04-13 13:39] MED LIST: Iopamidol-370 76% 500 ML 1 ML ONE
[2020-04-13 14:30] LABS: #Eosinphils 0.3 thou/uL (0.0-0.7); #Lymphocytes 1.5 thou/uL (1.20-3.40); #Monocytes 0.5 thou/uL (0.11-0.59); #Neutrophils 3.2 thou/uL (1.40-6.50); %Basophils 0.1 % (0.0-1.0); %Eosinophils 4.8 % (0.0-10.0); %Lymphocytes 27.9 % (21.0-51.0); %Monocytes 8.6 % (0.0-10.0); %Neutrophils 58.6 % (42.0-75.0); Hemoglobin 12.4 g/dL (14.0-18.0); Mean Corpuscular Hemoglobin 29.1 pg (27.0-31.0); Mean Corpuscular Volume 88.2 fL (78.0-98.0); Mean Platelet Volume 8.6 fL (7.4-10.4); Platelet Count 147 thou/uL (130-400); RBC Distribution Width 12.6 % (11.5-14.5); Red Blood Cell (RBC) Count 4.27 mill/uL (4.70-6.10); White Blood Cell (WBC) Count 5.5 thou/uL (4.8-10.8)
[2020-04-13 14:34] LABS: Prothrombin Time 13.5 sec (12.0-14.7)
[2020-04-13 14:35] LABS: PTT 33.4 sec (22.9-36.1)
[2020-04-13] MEDS ORDERED: Ondansetron PF 4 MG/2 ML Vial ONE (14:41)
[2020-04-13] MEDS ORDERED: Morphine 4 MG/ML VIAL ONE (14:41)
[2020-04-13 14:49] LABS: CRP (Inflammatory) 3.76 mg/dL (= or < 0.5)
[2020-04-13 14:54] LABS: ALT (SGPT) 13 U/L (8-55); AST (SGOT) 18 U/L (5-34); Albumin 3.1 g/dL (3.4-4.8); Alkaline Phosphatase 127 U/L (40-110); Anion Gap 11 mmol/L (10-20); BUN (Urea Nitrogen) 12 mg/dL (8.4-25.7); Bilirubin, Total 0.4 mg/dL (0.2-1.2); Calc. Creatinine Clearance 0 mL/min (70-130); Calcium 8.2 mg/dL (7.8-10.44); Carbon Dioxide 25 mmol/L (23-31); Chloride 109 mmol/L (98-107); Globulin 3.6 g/dL (2.4-3.5); Glucose 102 mg/dL (83-110); Potassium 3.3 mmol/L (3.5-5.1); Protein, Total 6.7 g/dL (5.8-8.1); Sodium 142 mmol/L (136-145)
[2020-04-13] MEDS ORDERED: Piperacillin/Tazobactam 4.5 GM VIAL ONE (15:05)
[2020-04-13] MEDS ORDERED: Clindamycin/D5W 600 mg/50 ml Premix Bag ONE (15:36)
--- NOTE | 2020-04-13 17:44 | RAD ---
RIGHT FOOT THREE VIEWS: 04/13/20 HISTORY: New blister first toe. FINDINGS/IMPRESSION: No acute fracture, dislocation or bony destruction seen. NO periosteal reaction identified. There is no radiographic evidence of acute osteomyelitis. If there is high clinical suspicion for osteomyelitis, further evaluation with MRI should be performe d (with and without IV contrast). POS: OFF
--- NOTE | 2020-04-13 19:43 | CT ---
CT OF PELVIS PERFORMED WITHOUT CONTRAST ENHANCEMENT: 04/13/20 HISTORY: Pain in groin area, lymphedema noted. The visualized intrapelvic contents show somewhat enlarged prostate. No pelvic fluid collections or m asses. The appendix region is unremarkable. There is some arthritic changes of the SI joints and hips noted. There is prominent bilateral inguinal nodes and there is cellulitis type changes in both thigh region s. IMPRESSION: 1. No evidence of an intrapelvic mass or fluid collection. There is a slightly enlarged prostate . 2. Prominent bilateral inguinal nodes probably reactive in nature. There is cellulitis changes i n the visualized portions of both upper thighs. POS: CASIE
[2020-04-13] MEDS ORDERED: Acetaminophen 325 MG TAB PO PRN (20:38)
[2020-04-13] MEDS ORDERED: Potassium Chloride 20 MEQ TAB PO SCH (20:45)
--- NOTE | 2020-04-13 20:52 | PDOC.HHP ---
Hospitalist HPI Right leg pain History of Present Illness: This is a 75-year-old male patient with a history of hypertension, urinary incontinence, hypercholesterolemia heart failure stroke dementia and bilateral lower limb chronic lymphedema who presents today with worsening pain of his right foot and the ball in his right big toe. He also complained of pain in his groin. Of note patient has bilateral extensive chronic lymphedema with secondary skin changes and he notes he has been following up with his primary care physician for management. Today he presents with the above complaints. He denies any associated fever chills nausea vomiting or diarrhea. He also denies any associated trauma. At presentation his blood pressure was 147/85 pulse 72, respiratory rate 22, temperature 98.3 and saturating at 97% on room air. His labs showed a mild anemia of 12.4, hypokalemia of 3.3, creatinine elevated at 1.56 around his baseline CK was 206, alkaline phosphatase 127 CRP 3.[address] scan of his pelvis was done showed no evidence of intrapelvic mass or fluid collection however prostate was enlarged. He also had prominent bilateral inguinal nodes with cellulitis changes in both upper thighs. X-ray of his right foot revealed no radiological evidence of osteomyelitis. Patient was started on vancomycin, Zosyn, clindamycin, and normal saline 1 L Zofran and morphine. Hospitalist team was consulted for admission. Allergies/Adverse Reactions: Allergy/AdvReac Type Severity Reaction Status Date / Time No Known Drug Allergies Allergy Mild Verified 04/13/20 23:52 Home Medications: Medication Instructions Recorded Confirmed Type Levothyroxine Sodium 25 mcg PO DAILY #0 tablet 01/10/15 04/14/20 Rx Donepezil HCl [Aricept] 10 mg PO HS 01/09/16 04/14/20 History Amlodipine [Norvasc] 10 mg PO DAILY #30 tab 01/11/16 04/14/20 Rx Lisinopril [Zestril] 5 mg PO BID #30 tab 01/11/16 04/14/20 Rx cloNIDine [Catapres] 0.1 mg PO BID #60 tab 01/11/16 04/14/20 Rx Potassium Chloride 10 meq PO DAILY #30 tab 06/24/17 04/14/20 Rx Furosemide [Lasix] 40 mg PO DAILY PRN 09/07/19 04/14/20 History Atorvastatin Calcium [Lipitor] 20 mg PO HS 04/14/20 04/14/20 History Past History: PMHx:hypertension, urinary incontinence, hypercholesterolemia heart failure stroke dementia and bilateral lower limb chronic lymphedema PSHx:Hernia repair, Family history: None of significance. Social history: No history of drug or alcohol use. No illicit drug use. Hospitalist HPI ROS Constitutional: denies: fever, chills, sweats, weakness, malaise Eyes: denies: pain Respiratory: denies: cough, shortness of breath, hemoptysis, SOB with excertion, pleuritic pain Cardiovascular: denies: chest pain, palpitations, orthopnea, paroxysmal noc. dyspnea, light headedness Gastrointestinal: denies: nausea, vomiting, abdominal pain, diarrhea, constipation Genitourinary: reports: incontinence. denies: dysuria, frequency, hematuria, retention Skin: denies: rash, lesions Neurological: denies: weakness, numbness, incoordination, change in speech Hospitalist Exam General Appearance: awake alert Eye: PERRL, anicteric sclera ENT: normocephalic atraumatic, no oropharyngeal lesions Neck: supple, symmetric, no JVD Heart: RRR, no murmur, no gallops, no rubs, normal peripheral pulses Respiratory: CTAB, no wheezes, no rales, no ronchi, normal chest expansion Gastrointestinal: soft, non-tender, non-distended, normal bowel sounds, no palpable masses Extremities: no cyanosis, no clubbing Extremities - other findings: Severely swollen left lower limbs with chronic runoff dermatitis changes. Neurological: cranial nerve grossly intact, no focal deficits, facial droop Psychiatric: normal affect, normal behavior, A&O x 3 Hospitalist Results Result Diagrams: 04/15/20 06:10 04/15/20 06:10 Lab results: Laboratory Last Values WBC 5.5 thou/uL (4.8-10.8) 04/13/20 14:05 RBC 4.27 mill/uL (4.70-6.10) L 04/13/20 14:05 Hgb 12.4 g/dL (14.0-18.0) L 04/13/20 14:05 Hct 37.7 % (42.0-52.0) L 04/13/20 14:05 MCV 88.2 fL (78.0-98.0) 04/13/20 14:05 MCH 29.1 pg (27.0-31.0) 04/13/20 14:05 MCHC 33.0 g/dL (32.0-36.0) 04/13/20 14:05 RDW 12.6 % (11.5-14.5) 04/13/20 14:05 Plt Count 147 thou/uL (130-400) 04/13/20 14:05 MPV 8.6 fL (7.4-10.4) 04/13/20 14:05 Neutrophils % 58.6 % (42.0-75.0) 04/13/20 14:05 Lymphocytes % 27.9 % (21.0-51.0) 04/13/20 14:05 Monocytes % 8.6 % (0.0-10.0) 04/13/20 14:05 Eosinophils % 4.8 % (0.0-10.0) 04/13/20 14:05 Basophils % 0.1 % (0.0-1.0) 04/13/20 14:05 Neutrophils # 3.2 thou/uL (1.40-6.50) 04/13/20 14:05 Lymphocytes # 1.5 thou/uL (1.20-3.40) 04/13/20 14:05 Monocytes # 0.5 thou/uL (0.11-0.59) 04/13/20 14:05 Eosinophils # 0.3 thou/uL (0.0-0.7) 04/13/20 14:05 Basophils # 0.0 thou/uL (0.0-0.2) 04/13/20 14:05 ESR Westergren 47 mm/hr (Less than 20) H 04/13/20 14:05 PT 13.5 sec (12.0-14.7) 04/13/20 14:05 INR 1.0 04/13/20 14:05 APTT 33.4 sec (22.9-36.1) 04/13/20 14:05 Sodium 142 mmol/L (136-145) 04/13/20 14:05 Potassium 3.3 mmol/L (3.5-5.1) L 04/13/20 14:05 Chloride 109 mmol/L (98-107) H 04/13/20 14:05 Carbon Dioxide 25 mmol/L (23-31) 04/13/20 14:05 Anion Gap 11 mmol/L (10-20) 04/13/20 14:05 BUN 12 mg/dL (8.4-25.7) 04/13/20 14:05 Creatinine 1.56 mg/dL (0.7-1.3) H 04/13/20 14:05 Estimated GFR (MDRD) 53 04/13/20 14:05 Glucose 102 mg/dL (83-110) 04/13/20 14:05 Lactic Acid 1.1 mmol/L (0.5-2.2) 04/13/20 14:05 Calcium 8.2 mg/dL (7.8-10.44) 04/13/20 14:05 Total Bilirubin 0.4 mg/dL (0.2-1.2) 04/13/20 14:05 AST 18 U/L (5-34) 04/13/20 14:05 ALT 13 U/L (8-55) 04/13/20 14:05 Alkaline Phosphatase 127 U/L (40-110) H 04/13/20 14:05 Creatine Kinase 206 U/L (30-200) H 04/13/20 14:05 C-Reactive Protein 3.76 mg/dL (= or < 0.5) H 04/13/20 14:05 B-Natriuretic Peptide 38.2 pg/mL (0-100) 04/13/20 14:05 Serum Total Protein 6.7 g/dL (5.8-8.1) 04/13/20 14:05 Albumin 3.1 g/dL (3.4-4.8) L 04/13/20 14:05 Globulin 3.6 g/dL (2.4-3.5) H 04/13/20 14:05 Albumin/Globulin Ratio 0.9 g/dL (1.2-2.2) L 04/13/20 14:05 Hospitalist H&P A/P Plan: This is a 75-year-old male patient with a history of hypertension, chronic lymphedema who presents with worsening pain of his left lower limb concerning for cellulitis. Left lower limb cellulitis. This is secondary to lymphedema with secondary skin changes. We will continue antibiotic therapy and vancomycin and Zosyn Given the extent of his limitations will have ID help in antibiotic management Consider consulting surgery. Hypertension BP stablewe will monitor. Bilateral lower limb lymphedema This is extensive. I do not know the long-term plans are for. He may benefit from evaluation for amputation and prosthesis. We will leave that to the day team discussion. Consider surgery input. Urinary incontinence Unclear why he is incontinent. He has BPH We will get urology to evaluate. Groin swelling and pain Is probably likely due to cellulitis and lymphedema Currently covered on antibiotic Consider urology evaluation. DVT prophylaxisLovenox CODE STATUSfull code
[2020-04-13 23:36] VITALS: BMI 31.1
[2020-04-14] MEDS: Piperacillin/Tazobactam 4.5 GM in Sodium Chloride 0.9% 100 ML IVPB SCH ×3 (08:43→14:29)
[2020-04-14] MEDS ORDERED: Potassium Chloride 20 MEQ TAB PO SCH (09:00)
[2020-04-14 10:49] LABS: #Eosinphils 0.3 thou/uL (0.0-0.7); #Lymphocytes 1.1 thou/uL (1.20-3.40); #Monocytes 0.4 thou/uL (0.11-0.59); #Neutrophils 4.2 thou/uL (1.40-6.50); %Eosinophils 4.8 % (0.0-10.0); %Lymphocytes 18.1 % (21.0-51.0); %Monocytes 6.7 % (0.0-10.0); %Neutrophils 70.3 % (42.0-75.0); Hemoglobin 13.5 g/dL (14.0-18.0); Mean Corpuscular HGB CONC 33.1 g/dL (32.0-36.0); Mean Corpuscular Hemoglobin 29.3 pg (27.0-31.0); Mean Corpuscular Volume 88.6 fL (78.0-98.0); Mean Platelet Volume 8.8 fL (7.4-10.4); Platelet Count 145 thou/uL (130-400); RBC Distribution Width 12.7 % (11.5-14.5); Red Blood Cell (RBC) Count 4.62 mill/uL (4.70-6.10); White Blood Cell (WBC) Count 5.9 thou/uL (4.8-10.8)
[2020-04-14 11:14] LABS: Anion Gap 14 mmol/L (10-20); BUN (Urea Nitrogen) 8 mg/dL (8.4-25.7); Calc. Creatinine Clearance 58 mL/min (70-130); Calcium 8.6 mg/dL (7.8-10.44); Carbon Dioxide 25 mmol/L (23-31); Chloride 111 mmol/L (98-107); Glucose 115 mg/dL (83-110); Potassium 3.3 mmol/L (3.5-5.1); Sodium 147 mmol/L (136-145)
--- NOTE | 2020-04-14 13:46 | PDOC.HOSPP ---
- Subjective Encounter Date: 04/14/20 Encounter Time: 11:25 Subjective: Patient is sitting comfortably he has no acute concerns. He is not sure that he had any bowel movement this morning. He appears to have mild cognitive impairment as well. - Objective Vital Signs & Weight: Vital Signs (12 hours) Temp Pulse Resp BP Pulse Ox 04/14/20 11:36 98.0 F 67 16 155/77 H 97 04/14/20 08:00 98.2 F 75 16 147/81 H 96 04/14/20 04:35 98.3 F 79 18 155/89 H 100 Weight Admit Weight 205 lb 0.464 oz Weight 205 lb 0.464 oz Result Diagrams: 04/14/20 10:24 04/14/20 10:24 Hospitalist ROS - Medication Medications: Active Medications Generic Name Dose Route Start Last Admin Trade Name Freq PRN Reason Stop Dose Admin Acetaminophen 650 mg 04/13/20 20:38 04/14/20 08:42 Acetaminophen 325 Mg Tab PO 650 mg Q4H PRN Administration Headache/Fever/Mild Pain (1-3) Piperacillin Sod/Tazobactam 100 mls @ 200 mls/hr 04/13/20 22:00 04/14/20 08:44 Sod 4.5 gm/ Sodium Chloride IVPB 100 mls Q8HR JAKE Administration Sodium Chloride 10 ml 04/14/20 09:00 04/14/20 08:55 Flush - Normal Saline 10 Ml Syringe IVF Not Given Q12HR [facility] Hospitalist Exam Vitals: Vital Signs (12 hours) Temp Pulse Resp BP Pulse Ox 04/14/20 11:36 98.0 F 67 16 155/77 H 97 04/14/20 08:00 98.2 F 75 16 147/81 H 96 04/14/20 04:35 98.3 F 79 18 155/89 H 100 Weight Admit Weight 205 lb 0.464 oz Weight 205 lb 0.464 oz General Appearance: NAD, awake alert Eye: PERRL, anicteric sclera ENT: normocephalic atraumatic Neck: supple Heart: RRR, normal peripheral pulses Respiratory: CTAB, normal chest expansion Gastrointestinal: soft, normal bowel sounds Extremities - other findings: Left leg chronic skin changes. Neurological: cranial nerve grossly intact, no focal deficits, no new deficit Psychiatric: normal affect, normal behavior, A&O x 3 Hosp A/P - Plan 75-year-old male patient with a history of hypertension, chronic lymphedema who presents with worsening pain of his left lower limb concerning for cellulitis. Left lower limb cellulitis. This is secondary to lymphedema with secondary skin changes. We will continue antibiotic therapy and vancomycin and Zosyn Given the extent, will have ID help in antibiotic management Consider consulting surgery. -Follow-up on the blood cultures which were done on . Hypertension BP stablewe will monitor. Bilateral lower limb lymphedema This is extensive. I do not know the long-term plans are for. He may benefit from evaluation for amputation and prosthesis. Urinary incontinence -BPH Groin swelling and pain Is probably likely due to cellulitis and lymphedema Currently covered on antibiotic Consider urology evaluation.--OP?--Since this is nonemergent and if he is still here on Thursday will talk to the urologist. DVT prophylaxisLovenox CODE STATUSfull code
[2020-04-14] MEDS: Furosemide 20 MG/2 ML VIAL SLOW IVP SCH (14:29)
[2020-04-14] MEDS: cefTRIAXone\\ROCEPHIN 2 GM in Sodium Chloride 0.9% 100 ML IVPB SCH (18:08)
--- NOTE | 2020-04-14 18:16 | ULT ---
Bilateral lower extremity arterial Doppler ultrasound: 04/14/2020 COMPARISON: None HISTORY: Diminished pulses TECHNIQUE: Multiplanar grayscale sonographic imaging of the arterial structures of bilateral lower ex tremities obtained with Doppler interrogation including color flow and spectral analysis. FINDINGS: Bilateral common femoral arteries, profunda femoral arteries, superficial femoral arteries, popliteal arteries, anterior tibial artery, posterior tibial arteries, and dorsalis pedis arteries are patent. There is a triphasic waveform within the right KETTLE GIRL and a biphasic waveform within the right profunda femoral artery. There is a triphasic waveform within the proximal right SFA. Arterial structures of the right lower extremity otherwise demonstrate monophasic waveforms. There is a biphasic waveform wi thin the left common femoral artery. Otherwise, left lower extremity arterial waveforms are monophasic. VESSEL PSV (cm/s) RIGHT KETTLE GIRL 109 Profunda femoral artery 120 SFA proximal 61 SFA mid 77 SFA distal 60 Popliteal artery 55 TD 20 HOT PATCHER 106 DPA 24 LEFT KETTLE GIRL 146 Profunda femoral artery 79 SFA proximal 123 SFA mid 81 SFA distal 59 Popliteal artery 72 TD 131 HOT PATCHER 43 DPA 44 IMPRESSION: Arterial structures of bilateral lower extremities are patent. Abnormal monophasic wavefo yee are noted involving the majority of bilateral lower extremities which may signify underlying hemodynamically significant stenosis. Findings could be best assessed with CT angiogram using runoff protocol. Transcribed Date/Time: 04/14/2020 7:14 PM
[2020-04-14] MEDS: HYDROcodone/Acetaminophen 5/325 mg Tablet PO PRN (20:50)
[2020-04-15] MEDS: HYDROcodone/Acetaminophen 5/325 mg Tablet PO PRN (05:23)
[2020-04-15] MEDS: Furosemide 20 MG/2 ML VIAL SLOW IVP SCH ×2 (05:23→13:55)
[2020-04-15 06:18] LABS: #Eosinphils 0.3 thou/uL (0.0-0.7); #Monocytes 0.4 thou/uL (0.11-0.59); %Basophils 0.3 % (0.0-1.0); %Eosinophils 5.9 % (0.0-10.0); %Monocytes 6.3 % (0.0-10.0); %Neutrophils 69.6 % (42.0-75.0); Hemoglobin 14.8 g/dL (14.0-18.0); Mean Corpuscular HGB CONC 31.6 g/dL (32.0-36.0); Mean Corpuscular Hemoglobin 27.8 pg (27.0-31.0); Mean Corpuscular Volume 87.9 fL (78.0-98.0); Mean Platelet Volume 8.4 fL (7.4-10.4); Platelet Count 177 thou/uL (130-400); RBC Distribution Width 12.7 % (11.5-14.5); Red Blood Cell (RBC) Count 5.34 mill/uL (4.70-6.10); White Blood Cell (WBC) Count 5.8 thou/uL (4.8-10.8)
[2020-04-15 06:41] LABS: Anion Gap 12 mmol/L (10-20); BUN (Urea Nitrogen) 6 mg/dL (8.4-25.7); Calc. Creatinine Clearance 55 mL/min (70-130); Carbon Dioxide 29 mmol/L (23-31); Chloride 106 mmol/L (98-107); Glucose 130 mg/dL (83-110); Potassium 3.2 mmol/L (3.5-5.1); Sodium 144 mmol/L (136-145)
--- NOTE | 2020-04-15 07:41 | CON ---
DATE OF CONSULTATION: 04/14/2020 CONSULT REASON: Cellulitis, venous insufficiency. HISTORY OF PRESENT ILLNESS: A 75-year-old whom I had seen in the past in 2015 when he presented with a history of prior CVA with left hemiparesis and likely amyloid angiopathy as well as stage 3 renal insufficiency, coronary artery disease, chronic lymphedema of lower extremities and episodes of recurrent lower extremity cellulitis. When I saw him in December, he had fallen to the ground and was found lying down and confused and pain all over his body and right lower extremity. There was edema in the right lower extremity with redness. There was left hemiparesis and moderate leukocytosis, thrombocytopenia, and 20% bands. The assessment was of cellulitis on top of venous insufficiency and the usual regimen was recommended. In February 2016, he presented with a TIA and right lower extremity cellulitis. He was given Rocephin and vancomycin and transferred to rehab. Dr. Sarkar was consulted basically for his TIA and carotid ultrasounds and next admission was in June 2016 with a [id number] elevation myocardial infarction, abdominal pain. He had a nuclear stress test which showed normal perfusion, had an EGD which showed mild duodenitis and then one year later in June 2017 he had acute on chronic diastolic heart failure and he was given Lasix. Apparently during this admission it became obvious that he was having difficult time in fitting his compression stockings and was not doing it. The next admission, which is the last one before this one was in August 2019 and basically the patient had concern with TIA versus stroke and he had a negative workup for COVID and he had a fever which resolved. CT of brain was unchanged. The MRI showed an acute infarction of the right periventricular white matter with evidence of prior infarctions. 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 This time he comes in with pain in the lower extremities. Apparently, he had been managed by home health nurse, not clear what kind of dressing they were doing. He states that they were wrapping his legs. He developed a boil in his right first toe and was having a lot of pain. He also had pain in the perineal area. (Cracking Unit Operator of dictation continues in the next entry) Job ID: [id number] MTDD
--- NOTE | 2020-04-15 07:42 | CON ---
DATE OF CONSULTATION: 04/14/2020 (Continuation of glass cleaner) PHYSICAL EXAMINATION: HEENT: The patient still has numerous teeth in place, a few missing, not a lot of periodontitis. Oral mucosa is normal. NECK: No jugular vein distention. No thyromegaly. LUNGS: With symmetric breath sounds. S1 and S2 without obvious murmurs. No S3 or S4. ABDOMEN: Soft, not distended or tender. No bladder distention. GENITAL: Appears to be within normal limits and he has a peripheral IV access. No Bhatia catheter. EXTREMITIES: He has those areas of prominent dermatosclerosis in the lower extremities as described above and the pulses are hard to evaluate and plantar responses are indifferent. NEUROLOGIC: He is awake, knows his name. He knows where he is and fairly cursory recollection of the events that led to his admission. LABORATORY DATA: White cell count is 5.5, hemoglobin 12.4, platelets 147 with a normal differential. INR 1.0. Creatinine was 1.56 with a baseline fairly similar kind of ranges from 1.4 to 2.03 over the past many years. IMAGING STUDIES: Testicular ultrasound was unremarkable from December except for some varicocele. The pelvis CT scan did not show any significant abnormalities except for inguinal lymph nodes, probably reactive in nature and foot x-rays, which did not show any bony abnormalities. ASSESSMENT: Cerebrovascular accidents in the past; left hemiparesis; mobility impairment; severe lymphedema with dermatosclerosis; hypertrophic areas in the right and left tibial skin surface; tenderness on palpation, which is diffusely distributed in lower extremities. DISCUSSION: The findings are consistent with untreated chronic lymphedema with venous insufficiency and the hypertrophic plaques and ulcerated areas extending into the skin of the feet. He also probably has some associated element of cellulitis and it is worthwhile to treat it. Obviously, he is not getting proper wound management and needs to resume proper Unna boots or similar compressive dressing. We will switch him to Rocephin for the time being or cefazolin. Eventual transition to oral Keflex and then suppressive penicillin VK. Need to review the type of wound dressing he is having done at home with his . He probably would benefit from proper compressive dressings done at the [facility]. Job ID: [id number] [facility]
[2020-04-15] MEDS ORDERED: hydrALAZINE 20 MG/ML VIAL SLOW IVP PRN (08:15)
[2020-04-15] MEDS: Potassium Chloride 10 MEQ TAB PO SCH (09:00)
[2020-04-15] MEDS: cloNIDine 0.1 MG TAB PO SCH ×2 (09:00→20:40)
[2020-04-15] MEDS: Amlodipine 10 MG TAB PO SCH (09:00)
[2020-04-15] MEDS: Lisinopril 5 MG TAB PO SCH ×2 (09:00→20:40)
[2020-04-15] MEDS: Levothyroxine Sodium 25 MCG TAB PO SCH (09:00)
--- NOTE | 2020-04-15 13:44 | PDOC.HOSPP ---
- Subjective Encounter Date: 04/15/20 Encounter Time: 12:10 Subjective: Patient seen he is at baseline functional status. I have explained that he probably needs ongoing long-term antibiotic treatment. I do not think patient understand or comprehend the enormity of his untreated chronic lymphedema. - Objective Vital Signs & Weight: Vital Signs (12 hours) Temp Pulse Resp BP Pulse Ox 04/15/20 11:38 98.5 F 81 20 155/93 H 97 04/15/20 09:00 73 04/15/20 07:52 98.0 F 73 20 176/95 H 97 04/15/20 04:00 98.2 F 85 18 168/93 H 95 Weight Admit Weight 205 lb 0.464 oz Weight 205 lb 0.464 oz I&O: 04/14/20 04/15/20 04/16/20 06:59 06:59 06:59 Output Total 2100 Balance -2100 Result Diagrams: 04/15/20 06:10 04/15/20 06:10 Hospitalist ROS - Medication Medications: Active Medications Generic Name Dose Route Start Last Admin Trade Name Freq PRN Reason Stop Dose Admin Acetaminophen 650 mg 04/13/20 20:38 04/14/20 08:42 Acetaminophen 325 Mg Tab PO 650 mg Q4H PRN Administration Headache/Fever/Mild Pain (1-3) Hydrocodone Bitart/Acetaminophen 1 tab 04/13/20 20:38 04/15/20 05:23 Hydrocodone/Acetaminophen 5/325 Mg Tablet PO 1 tab Q4H PRN Administration Moderate Pain (4-6) Amlodipine Besylate 10 mg 04/15/20 09:00 04/15/20 09:00 Amlodipine 10 Mg Tab PO 10 mg DAILY JAKE Administration Clonidine 0.1 mg 04/15/20 09:00 04/15/20 09:00 Clonidine 0.1 Mg Tab PO 0.1 mg BID JAKE Administration Furosemide 20 mg 04/14/20 14:00 04/15/20 05:23 Furosemide 20 Mg/2 Ml Vial SLOW IVP 20 mg 0600,1400 JAKE Administration Ceftriaxone Sodium 2 gm/ 100 mls @ 200 mls/hr 04/14/20 18:00 04/14/20 18:08 Sodium Chloride IVPB 100 mls Q24HR JAKE Administration Levothyroxine Sodium 25 mcg 04/15/20 09:00 04/15/20 09:00 Levothyroxine Sodium 25 Mcg Tab PO 25 mcg DAILY JAKE Administration Lisinopril 5 mg 04/15/20 09:00 04/15/20 09:00 Lisinopril 5 Mg Tab PO 5 mg BID JAKE Administration Potassium Chloride 10 meq 04/15/20 09:00 04/15/20 09:00 Potassium Chloride 10 Meq Tab PO 10 meq DAILY JAKE Administration Sodium Chloride 10 ml 04/14/20 09:00 04/15/20 09:00 Flush - Normal Saline 10 Ml Syringe IVF 10 ml Q12HR JAKE Administration Hospitalist Exam Vitals: Vital Signs (12 hours) Temp Pulse Resp BP Pulse Ox 04/15/20 11:38 98.5 F 81 20 155/93 H 97 04/15/20 09:00 73 04/15/20 07:52 98.0 F 73 20 176/95 H 97 04/15/20 04:00 98.2 F 85 18 168/93 H 95 Weight Admit Weight 205 lb 0.464 oz Weight 205 lb 0.464 oz General Appearance: NAD, awake alert Eye: PERRL ENT: normocephalic atraumatic Neck: supple Heart: murmur present Respiratory: CTAB, normal chest expansion Gastrointestinal: soft, normal bowel sounds Extremities - other findings: Severe chronic lymphedema disfigured both legs Neurological: no new deficit Psychiatric: A&O x 3 Hosp A/P - Plan 75-year-old male patient with a history of hypertension, chronic lymphedema who presents with worsening pain of his left lower limb concerning for cellulitis. Left lower limb cellulitis. Bilateral lower limb lymphedema Untreated chronic lymphedema with underlying venous insufficiency Possible amyloid angiopathy Hypertrophic leg with a skin ulceration This is secondary to lymphedema with secondary skin changes. We will continue antibiotic therapy and vancomycin and Zosyn--------------> transitioned to ceftriaxone --Appreciate ID input -Plan to continue with long duration of ceftriaxone followed by Kianna and followed by Fiona Andino -Ongoing wound care, including Unna boot or other compressive dressing - blood cultures of -no growth Hypertension BP stablewe will monitor. Urinary incontinence -BPH Groin swelling and pain Is probably likely due to cellulitis and lymphedema Currently covered on antibiotic Consider urology evaluation.--OP?--Since this is nonemergent and if he is still here on Thursday will talk to the urologist. DVT prophylaxisLovenox CODE STATUSfull code Needs mobilization - request the physical therapy to help with us
[2020-04-15] MEDS: cefTRIAXone\\ROCEPHIN 2 GM in Sodium Chloride 0.9% 100 ML IVPB SCH (17:28)
[2020-04-15] MEDS: Donepezil HCl 5 MG TAB PO SCH (20:41)
[2020-04-16] MEDS: Furosemide 20 MG/2 ML VIAL SLOW IVP SCH ×2 (06:05→14:26)
[2020-04-16] MEDS: cloNIDine 0.1 MG TAB PO SCH ×2 (08:02→20:35)
[2020-04-16] MEDS: Levothyroxine Sodium 25 MCG TAB PO SCH (08:03)
[2020-04-16] MEDS: Lisinopril 5 MG TAB PO SCH ×2 (08:03→20:36)
[2020-04-16] MEDS: Amlodipine 10 MG TAB PO SCH (08:04)
[2020-04-16] MEDS: Potassium Chloride 10 MEQ TAB PO SCH (08:04)
--- NOTE | 2020-04-16 08:48 | PDOC.HOSPP ---
- Subjective Encounter Date: 04/16/20 Encounter Time: 10:15 Subjective: Patient was seen. He noted severe pain in both LE. Physical therapy followed with us. Patient is not able to stand up. He states that he can walk prior to coming to the hospital. - Objective Vital Signs & Weight: Vital Signs (12 hours) Temp Pulse Resp BP Pulse Ox 04/16/20 08:04 55 L 04/16/20 08:03 55 L 04/16/20 07:30 98.0 F 55 L 18 154/91 H 97 04/15/20 21:12 98.1 F 70 18 153/88 H 96 Weight Admit Weight 205 lb 0.464 oz Weight 205 lb 0.464 oz I&O: 04/15/20 04/16/20 04/17/20 06:59 06:59 06:59 Intake Total 750 Output Total 2100 600 Balance -2100 150 Result Diagrams: 04/15/20 06:10 04/15/20 06:10 Hospitalist ROS - Medication Medications: Active Medications Generic Name Dose Route Start Last Admin Trade Name Freq PRN Reason Stop Dose Admin Acetaminophen 650 mg 04/13/20 20:38 04/14/20 08:42 Acetaminophen 325 Mg Tab PO 650 mg Q4H PRN Administration Headache/Fever/Mild Pain (1-3) Hydrocodone Bitart/Acetaminophen 1 tab 04/13/20 20:38 04/15/20 05:23 Hydrocodone/Acetaminophen 5/325 Mg Tablet PO 1 tab Q4H PRN Administration Moderate Pain (4-6) Amlodipine Besylate 10 mg 04/15/20 09:00 04/16/20 08:04 Amlodipine 10 Mg Tab PO 10 mg DAILY JAKE Administration Clonidine 0.1 mg 04/15/20 09:00 04/16/20 08:02 Clonidine 0.1 Mg Tab PO 0.1 mg BID JAKE Administration Donepezil HCl 10 mg 04/15/20 21:00 04/15/20 20:41 Donepezil Hcl 5 Mg Tab PO 10 mg HS JAKE Administration Furosemide 20 mg 04/14/20 14:00 04/16/20 06:05 Furosemide 20 Mg/2 Ml Vial SLOW IVP 20 mg 0600,1400 JAKE Administration Ceftriaxone Sodium 2 gm/ 100 mls @ 200 mls/hr 04/14/20 18:00 04/15/20 17:28 Sodium Chloride IVPB 100 mls Q24HR JAKE Administration Levothyroxine Sodium 25 mcg 04/15/20 09:00 04/16/20 08:03 Levothyroxine Sodium 25 Mcg Tab PO 25 mcg DAILY JAKE Administration Lisinopril 5 mg 04/15/20 09:00 04/16/20 08:03 Lisinopril 5 Mg Tab PO 5 mg BID JAKE Administration Potassium Chloride 10 meq 04/15/20 09:00 04/16/20 08:04 Potassium Chloride 10 Meq Tab PO 10 meq DAILY JAKE Administration Sodium Chloride 10 ml 04/14/20 09:00 04/16/20 08:04 Flush - Normal Saline 10 Ml Syringe IVF 10 ml Q12HR JAKE Administration Hospitalist Exam Vitals: Vital Signs (12 hours) Temp Pulse Resp BP Pulse Ox 04/16/20 08:04 55 L 04/16/20 08:03 55 L 04/16/20 07:30 98.0 F 55 L 18 154/91 H 97 04/15/20 21:12 98.1 F 70 18 153/88 H 96 Weight Admit Weight 205 lb 0.464 oz Weight 205 lb 0.464 oz General Appearance: NAD, awake alert Eye: PERRL, anicteric sclera ENT: normocephalic atraumatic Neck: supple Heart: RRR Respiratory: CTAB, normal chest expansion Gastrointestinal: soft, normal bowel sounds Extremities: 2+ LE edema Extremities - other findings: Hypertrophic plaques, mild erythema, reddishness - both legs Skin - other findings: Chronic lymphatic Neurological: cranial nerve grossly intact, no new deficit Musculoskeletal: generalized weakness Psychiatric: normal affect, normal behavior, A&O x 3 Hosp A/P - Plan 75-year-old male patient with a history of hypertension, chronic lymphedema who presents with worsening pain of his left lower limb concerning for cellulitis. Left lower limb cellulitis. Bilateral lower limb lymphedema Untreated chronic lymphedema with underlying venous insufficiency Possible amyloid angiopathy Hypertrophic leg with a skin ulceration This is secondary to lymphedema with secondary skin changes. We will continue antibiotic therapy and vancomycin and Zosyn--------------> transitioned to ceftriaxone --Appreciate ID input -Plan to continue with long duration of ceftriaxone followed by Kianna and followed by Fiona Andino -Ongoing wound care, including Unna boot or other compressive dressing - blood cultures of -no growth Hypertension BP stablewe will monitor. Urinary incontinence BPH -On finasteride Groin swelling and pain Is probably likely due to cellulitis and lymphedema Currently covered on antibiotic Consider urology evaluation.--OP?--Since this is nonemergent and if he is still here on Thursday will talk to the urologist. DVT prophylaxisLovenox CODE STATUSfull code Needs mobilization - request the physical therapy to help with us
[2020-04-16] MEDS: cefTRIAXone\\ROCEPHIN 2 GM in Sodium Chloride 0.9% 100 ML IVPB SCH (18:08)
[2020-04-16] MEDS: Donepezil HCl 5 MG TAB PO SCH (20:36)
[2020-04-17] MEDS: Furosemide 20 MG/2 ML VIAL SLOW IVP SCH ×2 (06:38→14:43)
[2020-04-17] MEDS: Finasteride 5 MG TAB PO SCH (08:11)
[2020-04-17] MEDS: Lisinopril 5 MG TAB PO SCH ×2 (08:11→20:24)
[2020-04-17] MEDS: Amlodipine 10 MG TAB PO SCH (08:11)
[2020-04-17] MEDS: cloNIDine 0.1 MG TAB PO SCH ×2 (08:11→20:24)
[2020-04-17] MEDS: Levothyroxine Sodium 25 MCG TAB PO SCH (08:11)
[2020-04-17] MEDS: Potassium Chloride 10 MEQ TAB PO SCH (08:12)
[2020-04-17] MEDS ORDERED: Lisinopril 5 MG TAB PO SCH ×2 (09:30→10:45)
--- NOTE | 2020-04-17 10:47 | PDOC.HOSPP ---
- Subjective Encounter Date: 04/17/20 Encounter Time: 09:00 Subjective: Mr. Younger states that he slept well, is able to eat, and is having bowel movements. He noted that he is having difficulty with his incontinence. He denies nausea, vomiting, headaches, tenderness. He reports pain over both his lower extremeties. He was becoming agitated and requested to go home during the visit. I saw his . She states that patient able to move up to the kitchen and eat something and then he sits in the wheelchair for the most of the time and he sleeps in the wheelchair as well - Objective Vital Signs & Weight: Vital Signs (12 hours) Temp Pulse Resp BP BP Pulse Ox 04/17/20 08:11 60 157/100 H 04/17/20 07:52 97.5 F L 55 L 17 153/88 H 98 04/17/20 06:16 97.6 F 57 L 18 145/91 H 98 04/17/20 00:53 98.0 F 57 L 18 139/89 97 Weight Admit Weight 205 lb 0.464 oz Weight 205 lb 0.464 oz I&O: 04/16/20 04/17/20 04/18/20 06:59 06:59 06:59 Intake Total 750 900 Output Total 600 Balance 150 900 Result Diagrams: 04/15/20 06:10 04/15/20 06:10 Hospitalist ROS - Review of Systems Constitutional: denies: fever Respiratory: denies: shortness of breath Gastrointestinal: denies: nausea, vomiting, abdominal pain, diarrhea Genitourinary: reports: incontinence Musculoskeletal: reports: leg pain, foot pain - Medication Medications: Active Medications Generic Name Dose Route Start Last Admin Trade Name Freq PRN Reason Stop Dose Admin Acetaminophen 650 mg 04/13/20 20:38 04/14/20 08:42 Acetaminophen 325 Mg Tab PO 650 mg Q4H PRN Administration Headache/Fever/Mild Pain (1-3) Hydrocodone Bitart/Acetaminophen 1 tab 04/13/20 20:38 04/15/20 05:23 Hydrocodone/Acetaminophen 5/325 Mg Tablet PO 1 tab Q4H PRN Administration Moderate Pain (4-6) Amlodipine Besylate 10 mg 04/15/20 09:00 04/17/20 08:11 Amlodipine 10 Mg Tab PO 10 mg DAILY JAKE Administration Clonidine 0.1 mg 04/15/20 09:00 04/17/20 08:11 Clonidine 0.1 Mg Tab PO 0.1 mg BID JAKE Administration Donepezil HCl 10 mg 04/15/20 21:00 04/16/20 20:36 Donepezil Hcl 5 Mg Tab PO 10 mg HS JAKE Administration Finasteride 5 mg 04/17/20 09:00 04/17/20 08:11 Finasteride 5 Mg Tab PO 5 mg DAILY JAKE Administration Furosemide 20 mg 04/14/20 14:00 04/17/20 06:38 Furosemide 20 Mg/2 Ml Vial SLOW IVP 20 mg 0600,1400 JAKE Administration Ceftriaxone Sodium 2 gm/ 100 mls @ 200 mls/hr 04/14/20 18:00 04/16/20 18:08 Sodium Chloride IVPB 100 mls Q24HR JAKE Administration Levothyroxine Sodium 25 mcg 04/15/20 09:00 04/17/20 08:11 Levothyroxine Sodium 25 Mcg Tab PO 25 mcg DAILY JAKE Administration Potassium Chloride 10 meq 04/15/20 09:00 04/17/20 08:12 Potassium Chloride 10 Meq Tab PO 10 meq DAILY JAKE Administration Sodium Chloride 10 ml 04/14/20 09:00 04/17/20 08:12 Flush - Normal Saline 10 Ml Syringe IVF 10 ml Q12HR JAKE Administration Hospitalist Exam Vitals: Vital Signs (12 hours) Temp Pulse Resp BP BP Pulse Ox 04/17/20 08:11 60 157/100 H 04/17/20 07:52 97.5 F L 55 L 17 153/88 H 98 04/17/20 06:16 97.6 F 57 L 18 145/91 H 98 04/17/20 00:53 98.0 F 57 L 18 139/89 97 Weight Admit Weight 205 lb 0.464 oz Weight 205 lb 0.464 oz General Appearance: NAD, awake alert Eye: PERRL, anicteric sclera ENT: normocephalic atraumatic Neck: supple Heart: RRR Respiratory: CTAB Extremities - other findings: Severe chronic lymphedema, BLE hypertrophy Skin - other findings: Bilateral LE plaques, Cellulitis on Left LE. Psychiatric: normal affect, normal behavior, A&O x 3 Hosp A/P - Plan 75-year-old male patient with a history of hypertension, chronic lymphedema who presents with worsening pain of his left lower limb concerning for cellulitis. Left lower limb cellulitis. Bilateral lower limb lymphedema Untreated chronic lymphedema with underlying venous insufficiency Possible amyloid angiopathy Hypertrophic leg with a skin ulceration This is secondary to lymphedema with secondary skin changes. We will continue antibiotic therapy and vancomycin and Zosyn--------------> transitioned to ceftriaxone --Appreciate ID input -Plan to continue with long duration of ceftriaxone followed by Kianna and followed by Fiona Andino -Ongoing wound care, including Unna boot or other compressive dressing - blood cultures of -no growth Hypertension BP stablewe will monitor. Urinary incontinence BPH -On finasteride Groin swelling and pain Is probably likely due to cellulitis and lymphedema Currently covered on antibiotic Consider urology evaluation.--OP?--Since this is nonemergent and if he is still here on Thursday will talk to the urologist. DVT prophylaxisLovenox CODE STATUSfull code Needs mobilization - request the physical therapy to help with us 04/17/20 BLE lymphedema with Left LE cellultis -Continue with ceftriaxone -Cultures - no growth at 48 hrs. -Discuss need for chronic antibiotic use with patient as he seems to still be unaware of the severity of his condition. -Arterial Doppler showed patent vasculature is in the lower extremities abnormal monophasic waveforms noted involving majority of the bilateral lower extremities underlying hemodynamically significant stenosis CT angiogram would be recommended Maintain antihypertensive regimen Monitor urinary incontinence after administering finasteride Discuss possibility of Urology consult. Maintain Lovenox for DVT prophylaxis. We will check with ID the duration of the antibiotic - he may need a PICC line. Strict in and output -DC Norvasc as it can exacerbate his lower extremity edema Patient needs ongoing wound care visit at least twice a week and aggressive physical therapy/ambulatory activities. It appears that he would not be able to do this at home. So I advised him going to inpatient rehab at least transiently. Care discussed with the student today and agree with the above plan.
[2020-04-17] MEDS: HYDROcodone/Acetaminophen 5/325 mg Tablet PO PRN (11:54)
[2020-04-17] MEDS ORDERED: Potassium Chloride 20 MEQ TAB PO SCH (13:45)
[2020-04-17] MEDS: cefTRIAXone\\ROCEPHIN 2 GM in Sodium Chloride 0.9% 100 ML IVPB SCH (17:18)
[2020-04-17] MEDS: Donepezil HCl 5 MG TAB PO SCH (20:25)
[2020-04-17] MEDS: Heparin 5,000 UNITS/ML VIAL SC SCH (20:25)
[2020-04-18] MEDS: Furosemide 20 MG/2 ML VIAL SLOW IVP SCH ×2 (05:23→14:54)
[2020-04-18] MEDS: Levothyroxine Sodium 50 MCG TAB PO SCH (05:23)
[2020-04-18 07:20] LABS: Anion Gap 11 mmol/L (10-20); BUN (Urea Nitrogen) 12 mg/dL (8.4-25.7); Calc. Creatinine Clearance 64 mL/min (70-130); Calcium 7.9 mg/dL (7.8-10.44); Carbon Dioxide 25 mmol/L (23-31); Chloride 106 mmol/L (98-107); Glucose 92 mg/dL (83-110); Potassium 3.3 mmol/L (3.5-5.1); Sodium 139 mmol/L (136-145)
[2020-04-18] MEDS: cloNIDine 0.1 MG TAB PO SCH ×2 (08:42→21:44)
[2020-04-18] MEDS: Lisinopril 5 MG TAB PO SCH ×2 (08:42→21:44)
[2020-04-18] MEDS: Heparin 5,000 UNITS/ML VIAL SC SCH ×2 (08:42→21:43)
[2020-04-18] MEDS: Finasteride 5 MG TAB PO SCH (08:42)
[2020-04-18] MEDS: Potassium Chloride 10 MEQ TAB PO SCH (08:43)
--- NOTE | 2020-04-18 13:45 | PRG ---
DATE OF SERVICE: 04/18/2020 SUBJECTIVE: Feeling better. The pain is much less in the legs. He let the Wound Care put compressive dressings in both legs. Legs are much smaller compared with when he came in. No respiratory symptoms. No abdominal pain. No diarrhea. He is voiding in the diaper without difficulty. OBJECTIVE: VITAL SIGNS: He has been afebrile. BP 150/90, heart rate 57, saturations 98% on room air. GENERAL: Appears in no distress. Awake, alert, and oriented. LUNGS: Clear. HEART: S1-S2, regular rate. ABDOMEN: Soft, not distended. EXTREMITIES: Both legs with compressive dressings. LABORATORY DATA: White cell count 5.8, hemoglobin 14, platelets 177. Creatinine is 1.34. ASSESSMENT AND DISCUSSION: Cerebrovascular accident, left hemiparesis, mobility impairment, severe lymphedema, dermatosclerosis hypertrophic areas in the right and left tibial skin surface, and cellulitis. At this point, we will switch him to oral Keflex for 10 days and then switch to Pen VK prophylaxis 250 b.i.d. for 12 months. Continue with compressive dressings. Job ID: [id number]
--- NOTE | 2020-04-18 14:43 | PDOC.HOSPP ---
- Subjective Encounter Date: 04/18/20 Encounter Time: 10:30 Subjective: Patient had a restful night he has no complaints this morning had a bowel movement; patient has a new compression stockings - Objective Vital Signs & Weight: Vital Signs (12 hours) Temp Pulse Resp BP BP Pulse Ox 04/18/20 08:42 57 L 153/93 H 04/18/20 07:29 97.9 F 56 L 18 139/85 98 04/18/20 03:27 97.9 F 56 L 18 142/86 H 98 Weight Admit Weight 205 lb 0.464 oz Weight 205 lb 0.464 oz I&O: 04/17/20 04/18/20 04/19/20 06:59 06:59 06:59 Intake Total 900 1030 Balance 900 1030 Result Diagrams: 04/15/20 06:10 04/18/20 06:46 Hospitalist ROS - Medication Medications: Active Medications Generic Name Dose Route Start Last Admin Trade Name Freq PRN Reason Stop Dose Admin Acetaminophen 650 mg 04/13/20 20:38 04/14/20 08:42 Acetaminophen 325 Mg Tab PO 650 mg Q4H PRN Administration Headache/Fever/Mild Pain (1-3) Hydrocodone Bitart/Acetaminophen 1 tab 04/13/20 20:38 04/17/20 11:54 Hydrocodone/Acetaminophen 5/325 Mg Tablet PO 1 tab Q4H PRN Administration Moderate Pain (4-6) Clonidine 0.1 mg 04/15/20 09:00 04/18/20 08:42 Clonidine 0.1 Mg Tab PO 0.1 mg BID JAKE Administration Donepezil HCl 10 mg 04/15/20 21:00 04/17/20 20:25 Donepezil Hcl 5 Mg Tab PO 10 mg HS JAKE Administration Finasteride 5 mg 04/17/20 09:00 04/18/20 08:42 Finasteride 5 Mg Tab PO 5 mg DAILY JAKE Administration Furosemide 20 mg 04/14/20 14:00 04/18/20 05:23 Furosemide 20 Mg/2 Ml Vial SLOW IVP 20 mg 0600,1400 JAKE Administration Heparin Sodium (Porcine) 5,000 units 04/17/20 21:00 04/18/20 08:42 Heparin 5,000 Units/Ml Vial SC 5,000 units BID JAKE Administration Levothyroxine Sodium 50 mcg 04/18/20 06:00 04/18/20 05:23 Levothyroxine Sodium 50 Mcg Tab PO 50 mcg 0600 JAKE Administration Lisinopril 10 mg 04/17/20 21:00 04/18/20 08:42 Lisinopril 5 Mg Tab PO 10 mg BID JAKE Administration Potassium Chloride 10 meq 04/15/20 09:00 04/18/20 08:43 Potassium Chloride 10 Meq Tab PO 10 meq DAILY JAKE Administration Sodium Chloride 10 ml 04/14/20 09:00 04/18/20 08:43 Flush - Normal Saline 10 Ml Syringe IVF 10 ml Q12HR JAKE Administration Hospitalist Exam Vitals: Vital Signs (12 hours) Temp Pulse Resp BP BP Pulse Ox 04/18/20 08:42 57 L 153/93 H 04/18/20 07:29 97.9 F 56 L 18 139/85 98 04/18/20 03:27 97.9 F 56 L 18 142/86 H 98 Weight Admit Weight 205 lb 0.464 oz Weight 205 lb 0.464 oz General Appearance: NAD, awake alert Eye: PERRL ENT: normocephalic atraumatic Neck: supple Heart: RRR Respiratory: CTAB, normal chest expansion Gastrointestinal: soft, normal bowel sounds Extremities - other findings: Chronic hypertrophic plaked lymphedema Neurological: cranial nerve grossly intact Musculoskeletal: normal tone Psychiatric: normal affect, normal behavior, A&O x 3 Hosp A/P - Plan 75-year-old male patient with a history of hypertension, chronic lymphedema who presents with worsening pain of his left lower limb concerning for cellulitis. Left lower limb cellulitis. Bilateral lower limb lymphedema Untreated chronic lymphedema with underlying venous insufficiency Possible amyloid angiopathy Hypertrophic leg with a skin ulceration This is secondary to lymphedema with secondary skin changes. We will continue antibiotic therapy and vancomycin and Zosyn--------------> transitioned to ceftriaxone --Appreciate ID input -Plan to continue with long duration of ceftriaxone followed by Kianna and followed by Fiona Andino -Ongoing wound care, including Unna boot or other compressive dressing - blood cultures of -no growth Hypertension BP stablewe will monitor. Urinary incontinence BPH -On finasteride Groin swelling and pain Is probably likely due to cellulitis and lymphedema Currently covered on antibiotic Consider urology evaluation.--OP?--Since this is nonemergent and if he is still here on Thursday will talk to the urologist. BLE lymphedema with Left LE cellultis -Continue with ceftriaxone -Cultures - no growth at 48 hrs. -Discuss need for chronic antibiotic use with patient as he seems to still be unaware of the severity of his condition. -Arterial Doppler showed patent vasculature is in the lower extremities abnormal monophasic waveforms noted involving majority of the bilateral lower extremities underlying hemodynamically significant stenosis CT angiogram would be recommended Maintain antihypertensive regimen Monitor urinary incontinence after administering finasteride Discuss possibility of Urology consult. Maintain Lovenox for DVT prophylaxis. We will check with ID the duration of the antibiotic - he may need a PICC line. Strict in and output -DC Norvasc as it can exacerbate his lower extremity edema Hypothyroidism -Suboptimally controlled -Free T4 normal rate -Increase the thyroxine supplement dose to 50 mcg daily Patient needs ongoing wound care visit at least twice a week and aggressive physical therapy/ambulatory activities. It appears that he would not be able to do this at home. So I advised him going to inpatient rehab at least transiently. Switch to Keflex p.o. for 10 days/500 q6h then Pen-Vee K 250 mg twice daily for 12 months along with compression dressing He needs a replacement or home health with physical therapy;; patient prefers to go home. -Patient needs to be ambulated at least few feet before being discharged. Hopefully he can go home with home health o/ physical therapy Care discussed with the student today and agree with the above plan.
[2020-04-18] MEDS ORDERED: Potassium Chloride 20 MEQ TAB PO SCH (14:45)
[2020-04-18] MEDS: Cephalexin 250 MG CAP PO SCH (17:50)
[2020-04-18] MEDS: Donepezil HCl 5 MG TAB PO SCH (21:44)
[2020-04-18] MEDS: HYDROcodone/Acetaminophen 5/325 mg Tablet PO PRN (21:49)
[2020-04-19] MEDS: Cephalexin 250 MG CAP PO SCH ×4 (00:18→17:28)
[2020-04-19] MEDS: Levothyroxine Sodium 50 MCG TAB PO SCH (06:02)
[2020-04-19] MEDS ORDERED: Furosemide 40 MG TAB PO SCH (07:30)
[2020-04-19] MEDS: Lisinopril 5 MG TAB PO SCH ×2 (08:54→20:24)
[2020-04-19] MEDS: Heparin 5,000 UNITS/ML VIAL SC SCH ×2 (08:56→20:25)
[2020-04-19] MEDS: Potassium Chloride 10 MEQ TAB PO SCH (08:56)
[2020-04-19] MEDS: cloNIDine 0.1 MG TAB PO SCH ×2 (08:56→20:24)
[2020-04-19] MEDS: Finasteride 5 MG TAB PO SCH (08:56)
--- NOTE | 2020-04-19 14:23 | PDOC.DS.DS ---
Provider Date of Admission: 04/13/20 19:02 Admitting Provider: Yovani Jordan MD Primary Care Physician: Winter Bailey MD Course Hospital Course: 75-year-old male patient with a history of hypertension, chronic lymphedema who presents with worsening pain of his left lower limb concerning for cellulitis. Left lower limb cellulitis. Bilateral lower limb lymphedema Untreated chronic lymphedema with underlying venous insufficiency Possible amyloid angiopathy Hypertrophic leg with a skin ulceration This is secondary to lymphedema with secondary skin changes. We will continue antibiotic therapy and vancomycin and Zosyn--------------> transitioned to ceftriaxone --Appreciate ID input -Plan to continue with long duration of ceftriaxone followed by Keflex and followed by Pen-Vee K. -Ongoing wound care, including Unna boot or other compressive dressing -Cultures - no growth at 48 hrs. -Discuss need for chronic antibiotic use with patient as he seems to still be unaware of the severity of his condition. -Arterial Doppler showed patent vasculature is in the lower extremities abnormal monophasic waveforms noted involving majority of the bilateral lower extremities underlying hemodynamically significant stenosis CT angiogram would be re commended Hypertension BP stablewe will monitor. Urinary incontinence BPH -On finasteride Groin swelling and pain -Secondary to chronic lymphedema. -Seems a little resolved prior to discharge. Hypothyroidism -Suboptimally controlled -Free T4 normal rate -Increased the thyroxine supplement dose to 50 mcg daily Patient needs ongoing wound care visit at least twice a week and aggressive phys ical therapy/ambulatory activities. It appears that he would not be able to do this at home. So I advised him going to inpatient rehab at least transiently. Switch to Keflex p.o. for 10 days/500 q6h then Pen-Vee K 250 mg twice daily for 12 months along with compression dressing. He is discharged with home health care for physical therapy; needs to have compression stockings while awake as well as during the night. disCharge time over 30 minutes. Lab Results: 04/15/20 06:10 04/18/20 06:46 Abnormal Lab Results - Last 48 hrs 04/18/20 06:46: Potassium 3.3 L, Creatinine 1.34 H Microbiology - Entire Visit 04/13/20 14:34 Venous blood - Right Arm Blood Culture - Final NO GROWTH IN 5 DAYS 04/13/20 14:05 Venous blood - Right Hand Blood Culture - Final NO GROWTH IN 5 DAYS Vitals: Vital Signs (12 hours) Temp Pulse Resp BP BP Pulse Ox 04/19/20 08:56 153/93 H 04/19/20 08:54 61 04/19/20 08:00 96 04/19/20 07:10 97.7 F 62 16 146/83 H 97 04/19/20 04:00 97.6 F 64 150/87 H Weight Admit Weight 205 lb 0.464 oz Weight 205 lb 0.464 oz Physical Exam: The patient was seen and examined on the day of discharge. Patient seen this morning he is very happy to go home today. Discussed with the child welfare caseworker. Home health has been arranged for physical therapy. Plan Prescriptions: Cephalexin [Keflex] 500 mg PO Q6HR 10 Days #40 cap Levothyroxine Sodium [Synthroid] 50 mcg PO 0600 30 Days #30 tab Lisinopril [Zestril] 10 mg PO BID 30 Days #60 tab Home Medications: Medication Instructions Recorded Confirmed Type Donepezil HCl [Aricept] 10 mg PO HS 01/09/16 04/14/20 History cloNIDine [Catapres] 0.1 mg PO BID #60 tab 01/11/16 04/14/20 Rx Potassium Chloride 10 meq PO DAILY #30 tab 06/24/17 04/14/20 Rx Furosemide [Lasix] 40 mg PO DAILY PRN 09/07/19 04/14/20 History Atorvastatin Calcium [Lipitor] 20 mg PO HS 04/14/20 04/14/20 History Cephalexin [Keflex] 500 mg PO Q6HR 10 Days #40 cap 04/19/20 Rx Levothyroxine Sodium [Synthroid] 50 mcg PO 0600 30 Days #30 tab 04/19/20 Rx Lisinopril [Zestril] 10 mg PO BID 30 Days #60 tab 04/19/20 Rx Allergies: No Known Drug Allergies Allergy (Mild, Verified 04/13/20 23:52) PER REHAB ADMIT ORDER Discharge Instructions:: PCP in 1 week Activity:: Activity as Tolerated Nourishment:: Regular Diet Referrals: [facility] [Outside] Bam Pablo MD [Active] - ( DIRECTED ) Winter Bailey MD [Primary Care Provider] - 04/24/20 1:15 pm (MATTHEW Friedman, RN will be calling you approximately 72 hours after discharge to check on you. If you should need anything with regards to your healthcare prior to that time, please contact her directly at (Thursday - Thursday 8:00 a.m. to 5:00 p.m.)) Disposition: HOME Quality CORE MEASURES:: N/A
[2020-04-19 20:12] VITALS: BP 135/82; TEMP 98.3
[2020-04-19] MEDS: Donepezil HCl 5 MG TAB PO SCH (20:25)
== END 2020-04-19 22:55 | disposition home health service (06) | DRG 603 ==
LOC: ERS 13:39 → T4-B 19:02
PROVIDERS: ADMIT Internal Medicine; ATTEND Internal Medicine
DX: L03.116 Cellulitis of left lower limb (principal); I69.354 Hemiplegia and hemiparesis following cerebral infarction affecting left non-dominant side; I89.0 Lymphedema, not elsewhere classified; I87.2 Venous insufficiency (chronic) (peripheral); N40.1 Benign prostatic hyperplasia with lower urinary tract symptoms; N39.498 Other specified urinary incontinence; E78.00 Pure hypercholesterolemia, unspecified; I11.0 Hypertensive heart disease with heart failure; I50.9 Heart failure, unspecified; F03.90 Unspecified dementia, unspecified severity, without behavioral disturbance, psychotic disturbance, mood disturbance, and anxiety; Z79.899 Other long term (current) drug therapy; Z79.82 Long term (current) use of aspirin; Z79.890 Hormone replacement therapy
CPT/HCPCS: 36415; 72193; 80048; 80053; 82550; 83605; 83735; 83880; 84439; 84443; 85025; 85610; 85652; 85730; 86140; 87040; 93923; 96365; 96366; 96367; 96375; J0696; J1644; J1940; J2270; J2405; J2543; J3370; J3490; J7030; Q9967

== ENCOUNTER 2020-07-25 13:35 | Inpatient (IN) | payer MEDICARE, BC ==
[2020-07-25 14:46] LABS: #Eosinphils 0.2 thou/uL (0.0-0.7); #Lymphocytes 1.4 thou/uL (1.20-3.40); #Monocytes 0.4 thou/uL (0.11-0.59); #Neutrophils 3.8 thou/uL (1.40-6.50); %Basophils 0.1 % (0.0-1.0); %Eosinophils 3.4 % (0.0-10.0); %Lymphocytes 24.5 % (21.0-51.0); %Monocytes 7.4 % (0.0-10.0); %Neutrophils 64.6 % (42.0-75.0); Hemoglobin 12.4 g/dL (14.0-18.0); Mean Corpuscular HGB CONC 31.7 g/dL (32.0-36.0); Mean Corpuscular Hemoglobin 27.7 pg (27.0-31.0); Mean Corpuscular Volume 87.5 fL (78.0-98.0); Mean Platelet Volume 8.8 fL (7.4-10.4); Platelet Count 174 thou/uL (130-400); Red Blood Cell (RBC) Count 4.49 mill/uL (4.70-6.10); White Blood Cell (WBC) Count 5.9 thou/uL (4.8-10.8)
[2020-07-25 15:10] LABS: ALT (SGPT) 17 U/L (8-55); AST (SGOT) 17 U/L (5-34); Albumin 3.4 g/dL (3.4-4.8); Alkaline Phosphatase 147 U/L (40-110); Anion Gap 11 mmol/L (10-20); BUN (Urea Nitrogen) 11 mg/dL (8.4-25.7); Bilirubin, Total 0.4 mg/dL (0.2-1.2); Calc. Creatinine Clearance 0 mL/min (70-130); Calcium 8.5 mg/dL (7.8-10.44); Carbon Dioxide 28 mmol/L (23-31); Chloride 104 mmol/L (98-107); Globulin 3.4 g/dL (2.4-3.5); Glucose 102 mg/dL (83-110); Potassium 3.2 mmol/L (3.5-5.1); Protein, Total 6.8 g/dL (5.8-8.1); Sodium 140 mmol/L (136-145)
[2020-07-25] MEDS ORDERED: Cefepime 2 GM VIAL ONE (15:50)
[2020-07-25] MEDS ORDERED: Vancomycin 1 GM/200 ML BAG ONE (16:19)
[2020-07-25 17:29] LABS: Bilirubin Negative (Negative); Blood, Urine Negative (Negative); Clarity Clear (Clear); Glucose, Urine (Dipstick) Normal (Negative); Ketone, Urine Negative (Negative); Leukocyte Negative Leu/uL (Negative); Nitrite Negative (Negative); Protein, Urine (Dipstick) Negative (Neg-Trace); Specific Gravity, Urine 1.005 (1.002-1.036); Urobilinogen Normal mg/dL (Less than 2); pH, Urine 7.5 (5.0-9.0)
[2020-07-25] MEDS ORDERED: HYDROcodone/Acetaminophen 5/325 mg Tablet PO PRN (18:37)
[2020-07-25] MEDS ORDERED: Ondansetron PF 4 MG/2 ML Vial IVP PRN (18:37)
[2020-07-25] MEDS ORDERED: Acetaminophen 325 MG TAB PO PRN (18:37)
[2020-07-25] MEDS ORDERED: Enoxaparin Sodium 30 MG/0.3 ML SYRINGE SC SCH (18:45)
[2020-07-25] MEDS ORDERED: Potassium Chloride 20 MEQ TAB PO SCH (19:15)
[2020-07-25] MEDS: cefTRIAXone\\ROCEPHIN 2 GM in Sodium Chloride 0.9% 100 ML IVPB SCH (21:46)
[2020-07-25 21:52] VITALS: BMI 31.1
[2020-07-26 03:14] LABS: SARS-CoV-2 NAA Rapid Test Not Detected (NotDetected)
[2020-07-26 06:15] LABS: #Eosinphils 0.2 thou/uL (0.0-0.7); #Lymphocytes 0.7 thou/uL (1.20-3.40); #Monocytes 0.5 thou/uL (0.11-0.59); #Neutrophils 4.5 thou/uL (1.40-6.50); %Basophils 0.2 % (0.0-1.0); %Eosinophils 3.6 % (0.0-10.0); %Lymphocytes 12.3 % (21.0-51.0); %Monocytes 8.2 % (0.0-10.0); %Neutrophils 75.7 % (42.0-75.0); Hemoglobin 13.5 g/dL (14.0-18.0); Mean Corpuscular HGB CONC 31.6 g/dL (32.0-36.0); Mean Corpuscular Hemoglobin 27.7 pg (27.0-31.0); Mean Corpuscular Volume 87.7 fL (78.0-98.0); Platelet Count 182 thou/uL (130-400); RBC Distribution Width 13.1 % (11.5-14.5); Red Blood Cell (RBC) Count 4.87 mill/uL (4.70-6.10); White Blood Cell (WBC) Count 5.9 thou/uL (4.8-10.8)
[2020-07-26 06:29] LABS: Anion Gap 13 mmol/L (10-20); BUN (Urea Nitrogen) 7 mg/dL (8.4-25.7); Calc. Creatinine Clearance 64 mL/min (70-130); Calcium 8.8 mg/dL (7.8-10.44); Carbon Dioxide 26 mmol/L (23-31); Chloride 111 mmol/L (98-107); Glucose 106 mg/dL (83-110); Potassium 3.2 mmol/L (3.5-5.1); Sodium 147 mmol/L (136-145)
[2020-07-26] MEDS ORDERED: Dextrose 5% in Water 1,000 ML IV SCH (07:45)
[2020-07-26] MEDS: Lisinopril 5 MG TAB PO SCH ×2 (08:16→20:53)
[2020-07-26] MEDS: cloNIDine 0.1 MG TAB PO SCH ×2 (08:17→20:52)
[2020-07-26 16:30] LABS: Hep C IgG Ab Non-Reactive (NonReactive); Hep C Index 0.09 S/CO (0-0.79)
[2020-07-26] MEDS: Potassium Chloride 20 MEQ TAB PO SCH ×2 (17:57→22:51)
[2020-07-26] MEDS: cefTRIAXone\\ROCEPHIN 2 GM in Sodium Chloride 0.9% 100 ML IVPB SCH (20:52)
[2020-07-26] MEDS: Atorvastatin Calcium 40 MG TAB PO SCH (20:53)
[2020-07-26] MEDS: Donepezil HCl 5 MG TAB PO SCH (20:53)
[2020-07-27] MEDS: Levothyroxine Sodium 50 MCG TAB PO SCH (05:26)
[2020-07-27] MEDS: Lisinopril 5 MG TAB PO SCH ×2 (07:45→20:28)
[2020-07-27] MEDS: cloNIDine 0.1 MG TAB PO SCH ×2 (07:47→20:28)
[2020-07-27 08:26] LABS: #Eosinphils 0.3 thou/uL (0.0-0.7); #Lymphocytes 1.1 thou/uL (1.20-3.40); #Monocytes 0.6 thou/uL (0.11-0.59); #Neutrophils 4.3 thou/uL (1.40-6.50); %Basophils 0.3 % (0.0-1.0); %Eosinophils 5.5 % (0.0-10.0); %Lymphocytes 17.5 % (21.0-51.0); %Monocytes 9.3 % (0.0-10.0); %Neutrophils 67.4 % (42.0-75.0); Hemoglobin 13.8 g/dL (14.0-18.0); Mean Corpuscular HGB CONC 31.6 g/dL (32.0-36.0); Mean Corpuscular Hemoglobin 28.4 pg (27.0-31.0); Mean Corpuscular Volume 90.1 fL (78.0-98.0); Mean Platelet Volume 8.6 fL (7.4-10.4); Platelet Count 170 thou/uL (130-400); RBC Distribution Width 13.1 % (11.5-14.5); Red Blood Cell (RBC) Count 4.85 mill/uL (4.70-6.10); White Blood Cell (WBC) Count 6.3 thou/uL (4.8-10.8)
[2020-07-27 08:39] LABS: Anion Gap 10 mmol/L (10-20); BUN (Urea Nitrogen) 6 mg/dL (8.4-25.7); Calc. Creatinine Clearance 58 mL/min (70-130); Calcium 8.5 mg/dL (7.8-10.44); Carbon Dioxide 28 mmol/L (23-31); Chloride 108 mmol/L (98-107); Glucose 114 mg/dL (83-110); Potassium 3.6 mmol/L (3.5-5.1); Sodium 142 mmol/L (136-145)
[2020-07-27] MEDS: cefTRIAXone\\ROCEPHIN 2 GM in Sodium Chloride 0.9% 100 ML IVPB SCH (20:27)
[2020-07-27] MEDS: Atorvastatin Calcium 40 MG TAB PO SCH (20:28)
[2020-07-27] MEDS: Donepezil HCl 5 MG TAB PO SCH (20:29)
[2020-07-28] MEDS: Levothyroxine Sodium 50 MCG TAB PO SCH (05:08)
[2020-07-28 06:16] LABS: Anion Gap 12 mmol/L (10-20); BUN (Urea Nitrogen) 7 mg/dL (8.4-25.7); Calc. Creatinine Clearance 68 mL/min (70-130); Calcium 8.1 mg/dL (7.8-10.44); Carbon Dioxide 24 mmol/L (23-31); Chloride 107 mmol/L (98-107); Glucose 102 mg/dL (83-110); Potassium 3.3 mmol/L (3.5-5.1); Sodium 140 mmol/L (136-145)
[2020-07-28] MEDS: Lisinopril 5 MG TAB PO SCH ×2 (07:59→20:22)
[2020-07-28] MEDS: cloNIDine 0.1 MG TAB PO SCH ×2 (07:59→20:22)
[2020-07-28] MEDS ORDERED: hydrALAZINE 20 MG/ML VIAL SLOW IVP PRN (18:29)
[2020-07-28] MEDS: cefTRIAXone\\ROCEPHIN 2 GM in Sodium Chloride 0.9% 100 ML IVPB SCH (20:19)
[2020-07-28] MEDS: Atorvastatin Calcium 40 MG TAB PO SCH (20:22)
[2020-07-28] MEDS: Donepezil HCl 5 MG TAB PO SCH (20:22)
[2020-07-29] MEDS: Levothyroxine Sodium 50 MCG TAB PO SCH (05:49)
[2020-07-29 06:15] LABS: #Eosinphils 0.3 thou/uL (0.0-0.7); #Lymphocytes 1.3 thou/uL (1.20-3.40); #Monocytes 0.5 thou/uL (0.11-0.59); #Neutrophils 3.4 thou/uL (1.40-6.50); %Basophils 0.2 % (0.0-1.0); %Eosinophils 6.2 % (0.0-10.0); %Lymphocytes 23.8 % (21.0-51.0); %Monocytes 8.7 % (0.0-10.0); %Neutrophils 61.1 % (42.0-75.0); Hemoglobin 12.8 g/dL (14.0-18.0); Mean Corpuscular HGB CONC 32.1 g/dL (32.0-36.0); Mean Corpuscular Hemoglobin 28.6 pg (27.0-31.0); Mean Corpuscular Volume 89.2 fL (78.0-98.0); Platelet Count 156 thou/uL (130-400); RBC Distribution Width 12.8 % (11.5-14.5); Red Blood Cell (RBC) Count 4.48 mill/uL (4.70-6.10); White Blood Cell (WBC) Count 5.5 thou/uL (4.8-10.8)
[2020-07-29 06:40] LABS: Anion Gap 8 mmol/L (10-20); BUN (Urea Nitrogen) 11 mg/dL (8.4-25.7); Calc. Creatinine Clearance 61 mL/min (70-130); Calcium 8.2 mg/dL (7.8-10.44); Carbon Dioxide 27 mmol/L (23-31); Chloride 107 mmol/L (98-107); Glucose 93 mg/dL (83-110); Potassium 3.4 mmol/L (3.5-5.1); Sodium 139 mmol/L (136-145)
[2020-07-29 08:17] VITALS: TEMP 98
[2020-07-29] MEDS: cloNIDine 0.1 MG TAB PO SCH (08:42)
[2020-07-29] MEDS: Lisinopril 5 MG TAB PO SCH (08:46)
[2020-07-29] MEDS ORDERED: Furosemide 20 MG TAB PO SCH (09:00)
[2020-07-29] MEDS ORDERED: Aspirin 81 mg Enteric Coated Tablet PO SCH (09:00)
[2020-07-29] MEDS ORDERED: Amlodipine 10 MG TAB PO SCH (09:00)
[2020-07-29] MEDS ORDERED: Enoxaparin Sodium 40 MG/0.4 ML SYRINGE SC SCH (10:15)
[2020-07-29 12:26] VITALS: BP 154/95
[2020-07-30] MEDS ORDERED: Enoxaparin Sodium 40 MG/0.4 ML SYRINGE SC SCH (09:00)
== END 2020-07-29 14:28 | disposition home health service (06) | DRG 603 ==
LOC: ERS 13:35 → T4-B 15:51
PROVIDERS: ADMIT Internal Medicine; ATTEND Hospitalist
DX: L03.116 Cellulitis of left lower limb (principal); I13.0 Hypertensive heart and chronic kidney disease with heart failure and stage 1 through stage 4 chronic kidney disease, or unspecified chronic kidney disease; I50.32 Chronic diastolic (congestive) heart failure; E87.0 Hyperosmolality and hypernatremia; I42.9 Cardiomyopathy, unspecified; I89.0 Lymphedema, not elsewhere classified; I25.10 Atherosclerotic heart disease of native coronary artery without angina pectoris; E78.5 Hyperlipidemia, unspecified; E87.6 Hypokalemia; L03.115 Cellulitis of right lower limb; N40.1 Benign prostatic hyperplasia with lower urinary tract symptoms; E03.9 Hypothyroidism, unspecified; N39.498 Other specified urinary incontinence; F01.50 Vascular dementia, unspecified severity, without behavioral disturbance, psychotic disturbance, mood disturbance, and anxiety; N18.30 Chronic kidney disease, stage 3 unspecified; M34.9 Systemic sclerosis, unspecified; I87.2 Venous insufficiency (chronic) (peripheral); Z20.822 Contact with and (suspected) exposure to COVID-19; Z86.73 Personal history of transient ischemic attack (TIA), and cerebral infarction without residual deficits; Z79.899 Other long term (current) drug therapy; Z98.890 Other specified postprocedural states
CPT/HCPCS: 0240U; 36415; 80048; 80053; 81003; 83605; 85025; 85652; 86140; 86803; 87040; 96365; 96367; J0692; J0696; J1650; J3370; J3490

== ENCOUNTER 2021-07-29 15:13 | Emergency (ER) | payer MEDICARE, BC ==
[2021-07-29 16:44] LABS: #Basophils 0.1 thou/uL (0.0-0.2); #Eosinphils 0.4 thou/uL (0.0-0.7); #Lymphocytes 1.3 thou/uL (1.20-3.40); #Monocytes 0.4 thou/uL (0.11-0.59); #Neutrophils 4.2 thou/uL (1.40-6.50); %Basophils 0.8 % (0.0-1.0); %Eosinophils 6.9 % (0.0-10.0); %Lymphocytes 19.7 % (21.0-51.0); %Neutrophils 66.7 % (42.0-75.0); Mean Corpuscular HGB CONC 31.8 g/dL (32.0-36.0); Mean Corpuscular Hemoglobin 28.4 pg (27.0-31.0); Mean Corpuscular Volume 89.3 fL (78.0-98.0); Mean Platelet Volume 8.3 fL (7.4-10.4); Platelet Count 195 thou/uL (130-400); RBC Distribution Width 12.6 % (11.5-14.5); Red Blood Cell (RBC) Count 4.57 mill/uL (4.70-6.10); White Blood Cell (WBC) Count 6.4 thou/uL (4.8-10.8)
[2021-07-29 17:15] LABS: ALT (SGPT) 16 U/L (8-55); AST (SGOT) 16 U/L (5-34); Albumin 3.3 g/dL (3.4-4.8); Alkaline Phosphatase 165 U/L (40-110); Anion Gap 12 mmol/L (10-20); BUN (Urea Nitrogen) 8 mg/dL (8.4-25.7); Bilirubin, Total 0.5 mg/dL (0.2-1.2); Calc. Creatinine Clearance 0 mL/min (70-130); Calcium 8.5 mg/dL (7.8-10.44); Carbon Dioxide 24 mmol/L (23-31); Chloride 106 mmol/L (98-107); Globulin 3.8 g/dL (2.4-3.5); Glucose 89 mg/dL (83-110); Potassium 3.5 mmol/L (3.5-5.1); Protein, Total 7.1 g/dL (5.8-8.1); Sodium 138 mmol/L (136-145)
[2021-07-29] MEDS ORDERED: Doxycycline 100 MG in Sodium Chloride 0.9% 100 ML IVPB SCH (18:30)
== END 2021-07-29 20:29 | disposition short-term general hospital (02) ==
LOC: ERS 15:13
DX: L03.115 Cellulitis of right lower limb (principal); L03.116 Cellulitis of left lower limb; I89.0 Lymphedema, not elsewhere classified; F03.90 Unspecified dementia, unspecified severity, without behavioral disturbance, psychotic disturbance, mood disturbance, and anxiety; I11.0 Hypertensive heart disease with heart failure; I50.9 Heart failure, unspecified; E78.5 Hyperlipidemia, unspecified; I10 Essential (primary) hypertension; Z86.73 Personal history of transient ischemic attack (TIA), and cerebral infarction without residual deficits; Z79.899 Other long term (current) drug therapy; Z79.82 Long term (current) use of aspirin
CPT/HCPCS: 36415; 80053; 83605; 83880; 85025; 87070; 87077; 87186; 87205; 96374; J3490

== ENCOUNTER 2021-08-31 16:00 | Inpatient (IN) | payer MEDICARE, BC ==
[2021-08-31 16:59] LABS: #Eosinphils 0.4 thou/uL (0.0-0.7); #Lymphocytes 0.6 thou/uL (1.20-3.40); #Monocytes 0.6 thou/uL (0.11-0.59); #Neutrophils 5.4 thou/uL (1.40-6.50); %Basophils 0.7 % (0.0-1.0); %Eosinophils 5.8 % (0.0-10.0); %Lymphocytes 8.4 % (21.0-51.0); %Monocytes 8.5 % (0.0-10.0); %Neutrophils 76.6 % (42.0-75.0); Mean Corpuscular HGB CONC 31.3 g/dL (32.0-36.0); Mean Corpuscular Volume 89.3 fL (78.0-98.0); Mean Platelet Volume 9.4 fL (7.4-10.4); Platelet Count 190 thou/uL (130-400); RBC Distribution Width 13.1 % (11.5-14.5); Red Blood Cell (RBC) Count 4.29 mill/uL (4.70-6.10); White Blood Cell (WBC) Count 7.1 thou/uL (4.8-10.8)
[2021-08-31 17:20] LABS: ALT (SGPT) 21 U/L (8-55); AST (SGOT) 18 U/L (5-34); Albumin 3.2 g/dL (3.4-4.8); Alkaline Phosphatase 133 U/L (40-110); Anion Gap 14 mmol/L (10-20); BUN (Urea Nitrogen) 25 mg/dL (8.4-25.7); Bilirubin, Total 0.6 mg/dL (0.2-1.2); Calc. Creatinine Clearance 0 mL/min (70-130); Calcium 8.5 mg/dL (7.8-10.44); Carbon Dioxide 23 mmol/L (23-31); Chloride 104 mmol/L (98-107); Estimated GFR 18; Globulin 3.6 g/dL (2.4-3.5); Glucose 105 mg/dL (83-110); Potassium 3.4 mmol/L (3.5-5.1); Protein, Total 6.8 g/dL (5.8-8.1); Sodium 138 mmol/L (136-145)
[2021-08-31 17:42] LABS: CKMB 1.1 ng/mL (0-6.6)
[2021-08-31] MEDS ORDERED: Ondansetron ODT 4 MG TAB PO PRN (18:54)
[2021-08-31] MEDS ORDERED: Ondansetron PF 4 MG/2 ML Vial IVP PRN (18:54)
[2021-08-31 20:53] LABS: Troponin I 0.153 ng/mL (< 0.028)
[2021-08-31] MEDS: Sodium Chloride 0.9% 1,000 ML IV SCH (22:13)
[2021-08-31] MEDS: Potassium Chloride 20 MEQ TAB PO SCH ×2 (22:13→23:06)
[2021-08-31 23:01] LABS: Troponin I 0.201 ng/mL (< 0.028)
[2021-08-31] MEDS ORDERED: Potassium Chloride 20 MEQ in Premix Bag 1 BAG IVPB SCH (23:30)
[2021-09-01 00:30] LABS: SARS-CoV-2 NAA Rapid Test Not Detected (NotDetected)
[2021-09-01 04:19] LABS: Bacteria/HPF None Seen HPF (None Seen); Bilirubin Negative (Negative); Blood, Urine Negative (Negative); Clarity Turbid (Clear); Glucose, Urine (Dipstick) Normal (Negative); Ketone, Urine Negative (Negative); Leukocyte 500 Leu/uL (Negative); Nitrite 1+ (Negative); Protein, Urine (Dipstick) Negative (Neg-Trace); RBC/HPF 0-3 HPF (0-3); Specific Gravity, Urine 1.006 (1.002-1.036); Squamous Epithelial None Seen HPF (0-3); Urobilinogen Normal mg/dL (Less than 2); WBC/HPF Greater than 50 HPF (0-3); pH, Urine 6.5 (5.0-9.0)
[2021-09-01] MEDS: Sodium Chloride 0.9% 1,000 ML IV SCH ×3 (04:49→21:43)
[2021-09-01 05:00] LABS: #Eosinphils 0.4 thou/uL (0.0-0.7); #Lymphocytes 0.8 thou/uL (1.20-3.40); #Monocytes 0.5 thou/uL (0.11-0.59); #Neutrophils 3.2 thou/uL (1.40-6.50); %Basophils 0.2 % (0.0-1.0); %Eosinophils 8.3 % (0.0-10.0); %Lymphocytes 15.7 % (21.0-51.0); %Monocytes 10.2 % (0.0-10.0); %Neutrophils 65.6 % (42.0-75.0); Hemoglobin 11.6 g/dL (14.0-18.0); Mean Corpuscular HGB CONC 31.1 g/dL (32.0-36.0); Mean Corpuscular Hemoglobin 27.7 pg (27.0-31.0); Mean Corpuscular Volume 89.2 fL (78.0-98.0); Mean Platelet Volume 9.2 fL (7.4-10.4); Platelet Count 175 thou/uL (130-400); RBC Distribution Width 13.1 % (11.5-14.5); White Blood Cell (WBC) Count 4.9 thou/uL (4.8-10.8)
[2021-09-01 05:22] LABS: ALT (SGPT) 15 U/L (8-55); AST (SGOT) 15 U/L (5-34); Albumin 2.9 g/dL (3.4-4.8); Alkaline Phosphatase 118 U/L (40-110); Anion Gap 10 mmol/L (10-20); BUN (Urea Nitrogen) 20 mg/dL (8.4-25.7); Bilirubin, Total 0.5 mg/dL (0.2-1.2); Calc. Creatinine Clearance 28 mL/min (70-130); Calcium 8.1 mg/dL (7.8-10.44); Carbon Dioxide 23 mmol/L (23-31); Chloride 112 mmol/L (98-107); Estimated GFR 25; Globulin 3.1 g/dL (2.4-3.5); Glucose 100 mg/dL (83-110); Potassium 3.4 mmol/L (3.5-5.1); Sodium 142 mmol/L (136-145)
[2021-09-01] MEDS: Enoxaparin Sodium 30 MG/0.3 ML SYRINGE SC SCH ×2 (08:57→09:01)
[2021-09-01] MEDS: Acetaminophen 325 MG TAB PO PRN (09:07)
[2021-09-01] MEDS ORDERED: Potassium Chloride 20 MEQ TAB PO SCH (10:00)
[2021-09-01] MEDS: Amlodipine 10 MG TAB PO SCH (10:28)
[2021-09-01] MEDS: Aspirin 81 mg Enteric Coated Tablet PO SCH (10:28)
[2021-09-01] MEDS: hydrOXYzine 25 MG TAB PO SCH ×2 (16:18→21:43)
[2021-09-01] MEDS: Calamine/Zinc Oxide 177 ML LOTION TP SCH ×2 (16:43→21:44)
[2021-09-01] MEDS: Donepezil HCl 5 MG TAB PO SCH (21:43)
[2021-09-01] MEDS: Bisacodyl 5 MG TAB PO SCH (21:43)
[2021-09-01] MEDS: Atorvastatin Calcium 20 MG TAB PO SCH (21:43)
[2021-09-01] MEDS: Potassium Chloride 10 MEQ TAB PO SCH (21:43)
[2021-09-01] MEDS: cloNIDine 0.1 MG TAB PO SCH (21:43)
[2021-09-02] MEDS: Sodium Chloride 0.9% 1,000 ML IV SCH ×3 (03:09→21:27)
[2021-09-02] MEDS: hydrOXYzine 25 MG TAB PO SCH ×3 (05:41→21:28)
[2021-09-02] MEDS ORDERED: Levothyroxine Sodium 25 MCG TAB PO SCH ×2 (06:00→08:58)
[2021-09-02 08:04] LABS: #Eosinphils 0.4 thou/uL (0.0-0.7); #Lymphocytes 0.8 thou/uL (1.20-3.40); #Monocytes 0.7 thou/uL (0.11-0.59); #Neutrophils 3.3 thou/uL (1.40-6.50); %Basophils 0.1 % (0.0-1.0); %Eosinophils 7.9 % (0.0-10.0); %Lymphocytes 15.5 % (21.0-51.0); %Monocytes 13.5 % (0.0-10.0); %Neutrophils 63.1 % (42.0-75.0); Hemoglobin 11.2 g/dL (14.0-18.0); Mean Corpuscular HGB CONC 30.7 g/dL (32.0-36.0); Mean Corpuscular Hemoglobin 27.5 pg (27.0-31.0); Mean Corpuscular Volume 89.5 fL (78.0-98.0); Mean Platelet Volume 8.9 fL (7.4-10.4); Platelet Count 155 thou/uL (130-400); RBC Distribution Width 13.1 % (11.5-14.5); Red Blood Cell (RBC) Count 4.07 mill/uL (4.70-6.10); White Blood Cell (WBC) Count 5.3 thou/uL (4.8-10.8)
[2021-09-02 08:20] LABS: Anion Gap 8 mmol/L (10-20); BUN (Urea Nitrogen) 10 mg/dL (8.4-25.7); Calc. Creatinine Clearance 37 mL/min (70-130); Calcium 7.7 mg/dL (7.8-10.44); Carbon Dioxide 25 mmol/L (23-31); Chloride 113 mmol/L (98-107); Estimated GFR 35; Glucose 118 mg/dL (83-110); Potassium 3.4 mmol/L (3.5-5.1); Sodium 143 mmol/L (136-145)
[2021-09-02] MEDS ORDERED: Levothyroxine Sodium 50 MCG TAB PO SCH (09:00)
[2021-09-02] MEDS ORDERED: Non-Formulary Item 1 EACH (Ferrous Sulfate [Ferosul] 325 MG Tablet) PO SCH (09:00)
[2021-09-02] MEDS: Potassium Chloride 10 MEQ TAB PO SCH ×2 (11:11→21:28)
[2021-09-02] MEDS: Aspirin 81 mg Enteric Coated Tablet PO SCH (11:11)
[2021-09-02] MEDS: Enoxaparin Sodium 30 MG/0.3 ML SYRINGE SC SCH (11:11)
[2021-09-02] MEDS: Amlodipine 10 MG TAB PO SCH (11:11)
[2021-09-02] MEDS: cloNIDine 0.1 MG TAB PO SCH ×2 (11:11→21:27)
[2021-09-02] MEDS: Ferrous Sulfate 325 MG TAB PO SCH (11:13)
[2021-09-02] MEDS: Calamine/Zinc Oxide 177 ML LOTION TP SCH ×3 (11:13→21:27)
[2021-09-02] MEDS: Bisacodyl 5 MG TAB PO SCH (21:27)
[2021-09-02] MEDS: Atorvastatin Calcium 20 MG TAB PO SCH (21:27)
[2021-09-02] MEDS: Donepezil HCl 5 MG TAB PO SCH (21:28)
[2021-09-03] MEDS ORDERED: Levothyroxine Sodium 100 MCG TAB PO SCH (06:00)
[2021-09-03] MEDS: HYDROcodone/Acetaminophen 5/325 mg Tablet PO PRN (06:20)
[2021-09-03] MEDS: Levothyroxine Sodium 100 MCG TAB PO SCH (06:20)
[2021-09-03] MEDS: hydrOXYzine 25 MG TAB PO SCH ×3 (06:21→21:22)
[2021-09-03] MEDS: Sodium Chloride 0.9% 1,000 ML IV SCH ×2 (06:21→11:20)
[2021-09-03 07:03] LABS: Anion Gap 11 mmol/L (10-20); BUN (Urea Nitrogen) 9 mg/dL (8.4-25.7); Calc. Creatinine Clearance 42 mL/min (70-130); Calcium 7.8 mg/dL (7.8-10.44); Carbon Dioxide 21 mmol/L (23-31); Chloride 113 mmol/L (98-107); Estimated GFR 41; Glucose 108 mg/dL (83-110); Potassium 3.4 mmol/L (3.5-5.1); Sodium 142 mmol/L (136-145)
[2021-09-03] MEDS: cloNIDine 0.1 MG TAB PO SCH ×3 (08:24→21:22)
[2021-09-03] MEDS: Potassium Chloride 10 MEQ TAB PO SCH ×3 (08:24→21:22)
[2021-09-03] MEDS: Aspirin 81 mg Enteric Coated Tablet PO SCH ×2 (08:24→09:30)
[2021-09-03] MEDS: Ferrous Sulfate 325 MG TAB PO SCH ×2 (08:24→09:31)
[2021-09-03] MEDS: Amlodipine 10 MG TAB PO SCH ×2 (08:24→09:31)
[2021-09-03] MEDS: Potassium Chloride 20 MEQ TAB PO SCH ×2 (08:24→09:31)
[2021-09-03] MEDS: Enoxaparin Sodium 30 MG/0.3 ML SYRINGE SC SCH ×2 (08:25→10:02)
[2021-09-03] MEDS: Calamine/Zinc Oxide 177 ML LOTION TP SCH ×3 (09:30→21:22)
[2021-09-03] MEDS: Atorvastatin Calcium 20 MG TAB PO SCH (21:22)
[2021-09-03] MEDS: Donepezil HCl 5 MG TAB PO SCH (21:22)
[2021-09-03] MEDS: Bisacodyl 5 MG TAB PO SCH (21:22)
[2021-09-04] MEDS: Levothyroxine Sodium 75 MCG TAB PO SCH (06:34)
[2021-09-04] MEDS: HYDROcodone/Acetaminophen 5/325 mg Tablet PO PRN ×2 (06:34→21:48)
[2021-09-04] MEDS: hydrOXYzine 25 MG TAB PO SCH ×3 (06:34→21:48)
[2021-09-04] MEDS: Levothyroxine Sodium 100 MCG TAB PO SCH (06:43)
[2021-09-04] MEDS: Amlodipine 10 MG TAB PO SCH (09:29)
[2021-09-04] MEDS: cloNIDine 0.1 MG TAB PO SCH ×2 (09:29→21:49)
[2021-09-04] MEDS: Aspirin 81 mg Enteric Coated Tablet PO SCH (09:29)
[2021-09-04] MEDS: Ferrous Sulfate 325 MG TAB PO SCH (09:29)
[2021-09-04] MEDS ORDERED: Potassium Chloride 20 MEQ TAB PO SCH (09:30)
[2021-09-04] MEDS: Potassium Chloride 10 MEQ TAB PO SCH (09:30)
[2021-09-04] MEDS: Acetaminophen 325 MG TAB PO PRN (09:31)
[2021-09-04] MEDS: Enoxaparin Sodium 30 MG/0.3 ML SYRINGE SC SCH (09:32)
[2021-09-04] MEDS: Calamine/Zinc Oxide 177 ML LOTION TP SCH ×3 (09:35→21:49)
[2021-09-04] MEDS: Atorvastatin Calcium 20 MG TAB PO SCH (21:47)
[2021-09-04] MEDS: Donepezil HCl 5 MG TAB PO SCH (21:48)
[2021-09-04] MEDS: Bisacodyl 5 MG TAB PO SCH (21:48)
[2021-09-04] MEDS: Potassium Chloride 20 MEQ TAB PO SCH (21:49)
[2021-09-05] MEDS: hydrOXYzine 25 MG TAB PO SCH ×3 (05:26→22:19)
[2021-09-05] MEDS: Levothyroxine Sodium 75 MCG TAB PO SCH (05:27)
[2021-09-05 08:19] LABS: #Eosinphils 0.3 thou/uL (0.0-0.7); #Lymphocytes 1.1 thou/uL (1.20-3.40); #Monocytes 0.4 thou/uL (0.11-0.59); #Neutrophils 2.2 thou/uL (1.40-6.50); %Basophils 0.9 % (0.0-1.0); %Eosinophils 7.8 % (0.0-10.0); %Lymphocytes 26.4 % (21.0-51.0); %Monocytes 10.7 % (0.0-10.0); %Neutrophils 54.1 % (42.0-75.0); Hemoglobin 13.3 g/dL (14.0-18.0); Mean Corpuscular HGB CONC 30.4 g/dL (32.0-36.0); Mean Corpuscular Volume 88.9 fL (78.0-98.0); Mean Platelet Volume 8.7 fL (7.4-10.4); Platelet Count 170 thou/uL (130-400); RBC Distribution Width 12.9 % (11.5-14.5); White Blood Cell (WBC) Count 4.1 thou/uL (4.8-10.8)
[2021-09-05 08:40] LABS: Anion Gap 12 mmol/L (10-20); BUN (Urea Nitrogen) 8 mg/dL (8.4-25.7); Calc. Creatinine Clearance 43 mL/min (70-130); Calcium 8.2 mg/dL (7.8-10.44); Carbon Dioxide 22 mmol/L (23-31); Chloride 110 mmol/L (98-107); Estimated GFR 45; Glucose 97 mg/dL (83-110); Potassium 3.7 mmol/L (3.5-5.1); Sodium 140 mmol/L (136-145)
[2021-09-05] MEDS: Ferrous Sulfate 325 MG TAB PO SCH (09:23)
[2021-09-05] MEDS: Amlodipine 10 MG TAB PO SCH (09:23)
[2021-09-05] MEDS: cloNIDine 0.1 MG TAB PO SCH ×2 (09:24→22:19)
[2021-09-05] MEDS: Potassium Chloride 20 MEQ TAB PO SCH ×2 (09:24→22:19)
[2021-09-05] MEDS: Aspirin 81 mg Enteric Coated Tablet PO SCH (09:24)
[2021-09-05] MEDS: Calamine/Zinc Oxide 177 ML LOTION TP SCH ×3 (09:25→22:20)
[2021-09-05] MEDS: Enoxaparin Sodium 40 MG/0.4 ML SYRINGE SC SCH (09:25)
[2021-09-05] MEDS: Atorvastatin Calcium 20 MG TAB PO SCH (22:18)
[2021-09-05] MEDS: Donepezil HCl 5 MG TAB PO SCH (22:18)
[2021-09-05] MEDS: HYDROcodone/Acetaminophen 5/325 mg Tablet PO PRN (22:19)
[2021-09-05] MEDS: Bisacodyl 5 MG TAB PO SCH (22:19)
[2021-09-06 04:23] LABS: #Eosinphils 0.5 thou/uL (0.0-0.7); #Lymphocytes 1.4 thou/uL (1.20-3.40); #Monocytes 0.6 thou/uL (0.11-0.59); #Neutrophils 3.1 thou/uL (1.40-6.50); %Basophils 0.6 % (0.0-1.0); %Eosinophils 8.5 % (0.0-10.0); %Lymphocytes 25.1 % (21.0-51.0); %Monocytes 10.9 % (0.0-10.0); Hemoglobin 12.6 g/dL (14.0-18.0); Mean Corpuscular HGB CONC 31.9 g/dL (32.0-36.0); Mean Corpuscular Hemoglobin 28.1 pg (27.0-31.0); Mean Platelet Volume 8.9 fL (7.4-10.4); Platelet Count 173 thou/uL (130-400); RBC Distribution Width 12.8 % (11.5-14.5); Red Blood Cell (RBC) Count 4.48 mill/uL (4.70-6.10); White Blood Cell (WBC) Count 5.6 thou/uL (4.8-10.8)
[2021-09-06 04:31] LABS: Anion Gap 13 mmol/L (10-20); BUN (Urea Nitrogen) 9 mg/dL (8.4-25.7); Calc. Creatinine Clearance 44 mL/min (70-130); Calcium 8.2 mg/dL (7.8-10.44); Carbon Dioxide 22 mmol/L (23-31); Chloride 110 mmol/L (98-107); Estimated GFR 45; Glucose 96 mg/dL (83-110); Potassium 3.7 mmol/L (3.5-5.1); Sodium 141 mmol/L (136-145)
[2021-09-06] MEDS: Levothyroxine Sodium 75 MCG TAB PO SCH (05:44)
[2021-09-06] MEDS: hydrOXYzine 25 MG TAB PO SCH ×2 (05:44→13:49)
[2021-09-06 07:57] VITALS: BMI 25.7
[2021-09-06] MEDS: Potassium Chloride 20 MEQ TAB PO SCH (09:18)
[2021-09-06] MEDS: cloNIDine 0.1 MG TAB PO SCH (09:19)
[2021-09-06] MEDS: Aspirin 81 mg Enteric Coated Tablet PO SCH (09:19)
[2021-09-06] MEDS: Ferrous Sulfate 325 MG TAB PO SCH (09:19)
[2021-09-06] MEDS: Calamine/Zinc Oxide 177 ML LOTION TP SCH ×2 (09:20→13:50)
[2021-09-06] MEDS: Enoxaparin Sodium 40 MG/0.4 ML SYRINGE SC SCH (09:21)
[2021-09-06] MEDS: Amlodipine 10 MG TAB PO SCH (09:21)
[2021-09-06 19:12] VITALS: BP 134/78; TEMP 98.2
== END 2021-09-06 20:38 | DRG 923 ==
LOC: ERS 16:00 → 2SW 18:08 → 2NO 09-01 18:00 → OBSVTOIN 09-02 10:46
PROVIDERS: ADMIT Hospitalist; ATTEND Hospitalist
DX: T67.5XXA Heat exhaustion, unspecified, initial encounter (principal); I13.0 Hypertensive heart and chronic kidney disease with heart failure and stage 1 through stage 4 chronic kidney disease, or unspecified chronic kidney disease; I50.32 Chronic diastolic (congestive) heart failure; N17.9 Acute kidney failure, unspecified; X58.XXXA Exposure to other specified factors, initial encounter; E86.0 Dehydration; Z20.822 Contact with and (suspected) exposure to COVID-19; D63.1 Anemia in chronic kidney disease; F03.90 Unspecified dementia, unspecified severity, without behavioral disturbance, psychotic disturbance, mood disturbance, and anxiety; E03.9 Hypothyroidism, unspecified; E87.6 Hypokalemia; I87.2 Venous insufficiency (chronic) (peripheral); N18.30 Chronic kidney disease, stage 3 unspecified; R79.89 Other specified abnormal findings of blood chemistry; Z86.79 Personal history of other diseases of the circulatory system; Z79.890 Hormone replacement therapy; Z79.82 Long term (current) use of aspirin; Z79.899 Other long term (current) drug therapy
CPT/HCPCS: 36415; 71045; 80048; 80053; 81001; 82553; 83735; 83880; 84443; 84484; 85025; 93005; 97139; J1650; J3480; J7050; U0002

== ENCOUNTER 2022-03-05 14:40 | Emergency (ER) | payer MEDICARE, BC ==
[2022-03-05 15:33] LABS: Hemoglobin 12.3 g/dL (14.0-18.0); Mean Corpuscular HGB CONC 32.3 g/dL (32.0-36.0); Mean Corpuscular Hemoglobin 27.8 pg (27.0-31.0); Mean Platelet Volume 9.3 fL (7.4-10.4); Platelet Count 144 10x3/uL (130-400); RBC Distribution Width 12.7 % (11.5-14.5); Red Blood Cell (RBC) Count 4.43 mill/uL (4.70-6.10); White Blood Cell (WBC) Count 4.4 10x3/uL (4.8-10.8)
[2022-03-05 15:51] LABS: ALT (SGPT) Less than 7 U/L (8-55); AST (SGOT) 15 U/L (5-34); Albumin 3.2 g/dL (3.4-4.8); Alkaline Phosphatase 114 U/L (40-110); Anion Gap 10 mmol/L (10-20); BUN (Urea Nitrogen) 7 mg/dL (8.4-25.7); Bilirubin, Total 0.5 mg/dL (0.2-1.2); Calc. Creatinine Clearance 0 mL/min (70-130); Calcium 8.1 mg/dL (7.8-10.44); Carbon Dioxide 26 mmol/L (23-31); Chloride 105 mmol/L (98-107); Estimated GFR 45; Globulin 3.5 g/dL (2.4-3.5); Glucose 105 mg/dL (83-110); Potassium 3.2 mmol/L (3.5-5.1); Protein, Total 6.7 g/dL (5.8-8.1); Sodium 138 mmol/L (136-145)
[2022-03-05 15:53] LABS: Band 7 % (5-11); Eosinophils 2 % (0-10); Lymphocytes 17 % (21-51); MDiff Complete? YES; Monocytes 18 % (0-10); Neutrophil 55 % (42-75); Platelet Morphology Comment Appears Adequate; Polychromasia SLIGHT = 2-3 cells (100X) (0-2/hpf); Reactive Lymphocytes 1 % (0-10)
[2022-03-05] MEDS ORDERED: Potassium Chloride 20 MEQ TAB ONE (17:26)
[2022-03-05] MEDS ORDERED: Acetaminophen 500 MG TAB ONE (17:26)
== END 2022-03-05 17:32 | disposition home or self-care (01) ==
LOC: ERS 14:40
DX: L03.116 Cellulitis of left lower limb (principal); I89.0 Lymphedema, not elsewhere classified; D72.819 Decreased white blood cell count, unspecified; I11.0 Hypertensive heart disease with heart failure; I50.9 Heart failure, unspecified; E78.5 Hyperlipidemia, unspecified; Z79.899 Other long term (current) drug therapy
CPT/HCPCS: 36415; 80053; 85025; 93005; 93970; 94760

== ENCOUNTER 2022-03-08 12:09 | Emergency (ER) | payer MEDICARE, BC ==
[2022-03-08 12:32] LABS: #Lymphocytes 1.1 thou/uL (1.20-3.40); #Monocytes 0.4 thou/uL (0.11-0.59); #Neutrophils 2.7 thou/uL (1.40-6.50); %Basophils 0.7 % (0.0-1.0); %Eosinophils 1.1 % (0.0-10.0); %Monocytes 8.7 % (0.0-10.0); %Neutrophils 64.5 % (42.0-75.0); Hemoglobin 12.7 g/dL (14.0-18.0); Mean Corpuscular HGB CONC 32.6 g/dL (32.0-36.0); Mean Corpuscular Hemoglobin 27.7 pg (27.0-31.0); Mean Platelet Volume 9.7 fL (7.4-10.4); Platelet Count 130 10x3/uL (130-400); RBC Distribution Width 12.5 % (11.5-14.5); Red Blood Cell (RBC) Count 4.57 mill/uL (4.70-6.10); White Blood Cell (WBC) Count 4.3 10x3/uL (4.8-10.8)
[2022-03-08 12:52] LABS: ALT (SGPT) 13 U/L (8-55); AST (SGOT) 20 U/L (5-34); Albumin 3.1 g/dL (3.4-4.8); Alkaline Phosphatase 102 U/L (40-110); Anion Gap 13 mmol/L (10-20); BUN (Urea Nitrogen) 13 mg/dL (8.4-25.7); Bilirubin, Total 0.6 mg/dL (0.2-1.2); Calc. Creatinine Clearance 0 mL/min (70-130); Calcium 8.4 mg/dL (7.8-10.44); Carbon Dioxide 23 mmol/L (23-31); Chloride 107 mmol/L (98-107); Estimated GFR 42; Glucose 101 mg/dL (83-110); Potassium 3.2 mmol/L (3.5-5.1); Protein, Total 7.1 g/dL (5.8-8.1); Sodium 140 mmol/L (136-145)
[2022-03-08] MEDS ORDERED: hydrALAZINE 20 MG/ML VIAL ONE (14:47)
[2022-03-08 16:01] LABS: Bilirubin Negative (Negative); Blood, Urine 1+ (Negative); Clarity Clear (Clear); Glucose, Urine (Dipstick) Normal (Negative); Ketone, Urine Negative (Negative); Leukocyte 250 Leu/uL (Negative); Nitrite Negative (Negative); Protein, Urine (Dipstick) 50 mg/dL (Neg-Trace); RBC/HPF 0-3 HPF (0-3); Specific Gravity, Urine 1.005 (1.002-1.036); Squamous Epithelial None Seen HPF (0-3); Urobilinogen Normal mg/dL (Less than 2); WBC/HPF 21-50 HPF (0-3); pH, Urine 7.5 (5.0-9.0)
[2022-03-08 16:02] LABS: Bacteria/HPF Rare-Few HPF (None Seen)
== END 2022-03-08 20:22 ==
LOC: ERS 12:09
DX: S70.01XA Contusion of right hip, initial encounter (principal); D72.819 Decreased white blood cell count, unspecified; I11.0 Hypertensive heart disease with heart failure; I50.9 Heart failure, unspecified; E78.5 Hyperlipidemia, unspecified; W05.0XXA Fall from non-moving wheelchair, initial encounter; Z79.82 Long term (current) use of aspirin; Z79.899 Other long term (current) drug therapy
CPT/HCPCS: 71045; 72170; 80053; 81003; 81015; 85025; 96374; J0360

== ENCOUNTER 2022-04-15 14:59 | Outpatient (CLI) | payer MEDICARE, BC | END 2022-04-15 15:00 | disposition home or self-care (01) | LOC: BICRAD 14:59 | PROVIDERS: ATTEND Student in an Organized Health Care Education/Training Program | DX: M25.552 Pain in left hip (principal); M16.12 Unilateral primary osteoarthritis, left hip ==

== ENCOUNTER 2022-08-25 00:17 | Observation (INO) | payer MEDICARE, BC ==
[2022-08-25] MEDS ORDERED: Ondansetron ODT 4 MG TAB ONE (02:38)
[2022-08-25] MEDS ORDERED: Morphine 4 MG/ML VIAL ONE (02:57)
[2022-08-25 03:45] LABS: #Eosinphils 0.2 thou/uL (0.0-0.7); #Monocytes 0.6 thou/uL (0.11-0.59); #Neutrophils 4.5 thou/uL (1.40-6.50); %Basophils 0.5 % (0.0-1.0); %Eosinophils 2.5 % (0.0-10.0); %Lymphocytes 17.8 % (21.0-51.0); %Monocytes 8.6 % (0.0-10.0); %Neutrophils 70.4 % (42.0-75.0); Hemoglobin 14.8 g/dL (14.0-18.0); Mean Corpuscular HGB CONC 31.8 g/dL (32.0-36.0); Mean Corpuscular Volume 84.7 fl (78.0-98.0); Mean Platelet Volume 11.2 fL (7.4-10.4); Platelet Count 217 10x3/uL (130-400); RBC Distribution Width 13.4 % (11.5-14.5); Red Blood Cell (RBC) Count 5.49 mill/uL (4.70-6.10); White Blood Cell (WBC) Count 6.4 10x3/uL (4.8-10.8)
[2022-08-25 04:34] LABS: ALT (SGPT) 9 U/L (8-55); AST (SGOT) 14 U/L (5-34); Albumin 3.7 g/dL (3.4-4.8); Alkaline Phosphatase 173 U/L (40-110); Anion Gap 14 mmol/L (10-20); BUN (Urea Nitrogen) 16 mg/dL (8.4-25.7); Bilirubin, Total 0.5 mg/dL (0.2-1.2); Calc. Creatinine Clearance 0 mL/min (70-130); Carbon Dioxide 27 mmol/L (23-31); Chloride 104 mmol/L (98-107); Estimated GFR 35; Globulin 3.9 g/dL (2.4-3.5); Glucose 104 mg/dL (83-110); Lipase 40 U/L (8-78); Potassium 2.9 mmol/L (3.5-5.1); Protein, Total 7.6 g/dL (5.8-8.1); Sodium 142 mmol/L (136-145)
[2022-08-25 04:56] LABS: CKMB 1.7 ng/mL (0-6.6)
[2022-08-25] MEDS ORDERED: Pot Chloride/Pot Bicarb/Cit Ac 25 mEq Effervescent Tablet ONE ×2 (05:19→05:20)
[2022-08-25 05:27] LABS: Bacteria/HPF None Seen HPF (None Seen); Bilirubin Negative (Negative); Blood, Urine Negative (Negative); CAUTI Indications for Culture Pelvic or flank pain; Clarity Clear (Clear); Glucose, Urine (Dipstick) Normal (Negative); Ketone, Urine Negative (Negative); Leukocyte Negative Leu/uL (Negative); Nitrite Negative (Negative); Protein, Urine (Dipstick) Negative (Neg-Trace); RBC/HPF 0-3 HPF (0-3); Specific Gravity, Urine 1.013 (1.002-1.036); Squamous Epithelial None Seen HPF (0-3); Urobilinogen Normal mg/dL (Less than 2); WBC/HPF 0-3 HPF (0-3); pH, Urine 7.5 (5.0-9.0)
[2022-08-25 05:36] LABS: Urine Culture Reflex No No
[2022-08-25] MEDS ORDERED: Aspirin Chewable 81 MG TAB ONE (06:50)
[2022-08-25] MEDS ORDERED: Ondansetron ODT 4 MG TAB PO PRN (07:49)
[2022-08-25] MEDS ORDERED: Ondansetron PF 4 MG/2 ML Vial IVP PRN (07:49)
[2022-08-25] MEDS ORDERED: Acetaminophen 325 MG TAB PO PRN (08:13)
[2022-08-25 08:40] LABS: Troponin I 0.121 ng/mL (< 0.028)
[2022-08-25] MEDS: Heparin 5,000 UNITS/ML VIAL SC SCH ×3 (09:26→20:45)
[2022-08-25] MEDS ORDERED: Electrolyte Replacement Protocol 1 EACH FS SCH (09:45)
[2022-08-25 11:00] LABS: Troponin I 0.117 ng/mL (< 0.028)
[2022-08-25] MEDS ORDERED: Iopamidol-370 76% 500 ML MDV (1 ML CHARGE) ONE (11:20)
[2022-08-25] MEDS: Lisinopril 5 MG TAB PO SCH (20:45)
[2022-08-25] MEDS: cloNIDine 0.1 MG TAB PO SCH (20:45)
[2022-08-25] MEDS ORDERED: Atorvastatin Calcium 20 MG TAB PO SCH (21:00)
[2022-08-25] MEDS ORDERED: Donepezil HCl 5 MG TAB PO SCH (21:00)
[2022-08-26 04:16] LABS: #Eosinphils 0.3 thou/uL (0.0-0.7); #Monocytes 0.4 thou/uL (0.11-0.59); #Neutrophils 3.8 thou/uL (1.40-6.50); %Basophils 0.5 % (0.0-1.0); %Eosinophils 4.3 % (0.0-10.0); %Lymphocytes 22.3 % (21.0-51.0); %Monocytes 7.5 % (0.0-10.0); %Neutrophils 65.2 % (42.0-75.0); Hemoglobin 12.5 g/dL (14.0-18.0); Mean Corpuscular HGB CONC 30.7 g/dL (32.0-36.0); Mean Corpuscular Hemoglobin 26.5 pg (27.0-31.0); Mean Corpuscular Volume 86.4 fl (78.0-98.0); Mean Platelet Volume 11.5 fL (7.4-10.4); Platelet Count 195 10x3/uL (130-400); RBC Distribution Width 13.7 % (11.5-14.5); Red Blood Cell (RBC) Count 4.71 mill/uL (4.70-6.10); White Blood Cell (WBC) Count 5.8 10x3/uL (4.8-10.8)
[2022-08-26 04:37] LABS: Anion Gap 10 mmol/L (10-20); BUN (Urea Nitrogen) 11 mg/dL (8.4-25.7); Calc. Creatinine Clearance 0 mL/min (70-130); Calcium 8.6 mg/dL (7.8-10.44); Carbon Dioxide 27 mmol/L (23-31); Chloride 110 mmol/L (98-107); Estimated GFR 40; Glucose 95 mg/dL (83-110); Potassium 3.1 mmol/L (3.5-5.1); Sodium 144 mmol/L (136-145)
[2022-08-26] MEDS ORDERED: Levothyroxine Sodium 25 MCG TAB PO SCH (06:00)
[2022-08-26] MEDS: cloNIDine 0.1 MG TAB PO SCH (08:18)
[2022-08-26] MEDS: Potassium Chloride 20 MEQ TAB PO SCH ×2 (08:18→09:46)
[2022-08-26] MEDS: Lisinopril 5 MG TAB PO SCH (08:19)
[2022-08-26] MEDS: Heparin 5,000 UNITS/ML VIAL SC SCH (08:19)
[2022-08-26] MEDS ORDERED: Amlodipine 10 MG TAB PO SCH (09:00)
[2022-08-26] MEDS ORDERED: Escitalopram Oxalate 10 mg Tablet PO SCH (09:00)
[2022-08-26] MEDS ORDERED: Ferrous Sulfate 325 MG TAB PO SCH (09:00)
[2022-08-26] MEDS ORDERED: Aspirin 81 mg Enteric Coated Tablet PO SCH (09:00)
[2022-08-26] MEDS ORDERED: Potassium Chloride 20 MEQ TAB PO SCH (09:15)
[2022-08-26 12:14] VITALS: BP 157/86; TEMP 97.5
== END 2022-08-26 15:07 | disposition home or self-care (01) ==
LOC: ERS 00:17 → ERHOLD 07:56 → 2NO 12:09
PROVIDERS: ADMIT Internal Medicine; ATTEND Internal Medicine
DX: T45.0X1A Poisoning by antiallergic and antiemetic drugs, accidental (unintentional), initial encounter (principal); E78.5 Hyperlipidemia, unspecified; I11.0 Hypertensive heart disease with heart failure; I50.9 Heart failure, unspecified; E87.6 Hypokalemia; R77.8 Other specified abnormalities of plasma proteins; Z86.73 Personal history of transient ischemic attack (TIA), and cerebral infarction without residual deficits; Z79.82 Long term (current) use of aspirin; Z79.890 Hormone replacement therapy; Z79.899 Other long term (current) drug therapy
CPT/HCPCS: 71045; 74177; 80048; 80053; 81001; 82553; 83605; 83690; 83880; 84484 ×2; 85025 ×2; 93005; 96372 ×2; 96374; 99285; G0378 ×3; 36415; J1644; J2270; Q0162; Q9967

== ENCOUNTER 2022-12-13 14:34 | Emergency (ER) | payer MEDICARE, BC ==
[2022-12-13 15:23] LABS: #Eosinphils 0.3 thou/uL (0.0-0.7); #Monocytes 0.4 thou/uL (0.11-0.59); #Neutrophils 2.9 thou/uL (1.40-6.50); %Basophils 0.8 % (0.0-1.0); %Eosinophils 5.7 % (0.0-10.0); %Lymphocytes 29.1 % (21.0-51.0); %Monocytes 7.1 % (0.0-10.0); %Neutrophils 57.1 % (42.0-75.0); Hematocrit 41.6 % (42.0-52.0); Hemoglobin 13.2 g/dL (14.0-18.0); Mean Corpuscular HGB CONC 31.7 g/dL (32.0-36.0); Mean Corpuscular Hemoglobin 26.9 pg (27.0-31.0); Mean Corpuscular Volume 84.9 fl (78.0-98.0); Mean Platelet Volume 11.6 fL (7.4-10.4); Platelet Count 163 10x3/uL (130-400); RBC Distribution Width 13.5 % (11.5-14.5); White Blood Cell (WBC) Count 5.1 10x3/uL (4.8-10.8)
[2022-12-13 15:45] LABS: ALT (SGPT) 10 U/L (8-55); AST (SGOT) 16 U/L (5-34); Albumin 3.9 g/dL (3.4-4.8); Alkaline Phosphatase 136 U/L (40-110); Anion Gap 10 mmol/L (10-20); BUN (Urea Nitrogen) 16 mg/dL (8.4-25.7); Bilirubin, Total 0.4 mg/dL (0.2-1.2); Calc. Creatinine Clearance 0 mL/min (70-130); Calcium 8.6 mg/dL (7.8-10.44); Carbon Dioxide 29 mmol/L (23-31); Chloride 104 mmol/L (98-107); Estimated GFR 36; Globulin 2.7 g/dL (2.4-3.5); Glucose 106 mg/dL (83-110); Potassium 2.9 mmol/L (3.5-5.1); Protein, Total 6.6 g/dL (5.8-8.1); Sodium 140 mmol/L (136-145)
[2022-12-13 15:49] LABS: Troponin I 0.087 ng/mL (< 0.028)
[2022-12-13 16:29] LABS: Magnesium 1.8 mg/dL (1.6-2.6)
[2022-12-13] MEDS ORDERED: Potassium Chloride 20 MEQ TAB ONE (16:35)
[2022-12-13] MEDS ORDERED: Aspirin Chewable 81 MG TAB ONE (16:37)
[2022-12-13] MEDS ORDERED: Acetaminophen 325 MG TAB ONE (18:07)
== END 2022-12-13 19:29 | disposition home or self-care (01) ==
LOC: ERS 14:34
DX: I87.2 Venous insufficiency (chronic) (peripheral) (principal); E87.6 Hypokalemia; I13.0 Hypertensive heart and chronic kidney disease with heart failure and stage 1 through stage 4 chronic kidney disease, or unspecified chronic kidney disease; N18.9 Chronic kidney disease, unspecified; I50.9 Heart failure, unspecified; R79.89 Other specified abnormal findings of blood chemistry; E78.5 Hyperlipidemia, unspecified; Z79.82 Long term (current) use of aspirin; Z79.899 Other long term (current) drug therapy
CPT/HCPCS: 36415; 71045; 80053; 83735; 83880; 84484; 85025; 85379; 93005; 93970

== ENCOUNTER 2023-01-25 18:22 | Emergency (ER) | payer MEDICARE, BC ==
[~2023-01-25 18:22] MED LIST changes: -Iopamidol-370 76% 500 ML 1 ML ONE; +Iopamidol-370 76% 500 ML MDV (1 ML CHARGE) ONE
[2023-01-25 19:04] LABS: #Eosinphils 0.2 thou/uL (0.0-0.7); #Monocytes 0.4 thou/uL (0.11-0.59); #Neutrophils 3.5 thou/uL (1.40-6.50); %Basophils 0.7 % (0.0-1.0); %Eosinophils 3.6 % (0.0-10.0); %Lymphocytes 25.9 % (21.0-51.0); %Monocytes 6.6 % (0.0-10.0); %Neutrophils 62.8 % (42.0-75.0); Hematocrit 41.9 % (42.0-52.0); Hemoglobin 13.6 g/dL (14.0-18.0); Mean Corpuscular HGB CONC 32.5 g/dL (32.0-36.0); Mean Corpuscular Hemoglobin 27.1 pg (27.0-31.0); Mean Corpuscular Volume 83.6 fl (78.0-98.0); Mean Platelet Volume 11.4 fL (7.4-10.4); Platelet Count 175 10x3/uL (130-400); RBC Distribution Width 13.2 % (11.5-14.5); Red Blood Cell (RBC) Count 5.01 mill/uL (4.70-6.10); White Blood Cell (WBC) Count 5.6 10x3/uL (4.8-10.8)
[2023-01-25 19:29] LABS: ALT (SGPT) 15 U/L (8-55); AST (SGOT) 18 U/L (5-34); Alkaline Phosphatase 172 U/L (40-110); Anion Gap 14 mmol/L (10-20); BUN (Urea Nitrogen) 12 mg/dL (8.4-25.7); Bilirubin, Total 0.5 mg/dL (0.2-1.2); Calc. Creatinine Clearance 0 mL/min (70-130); Carbon Dioxide 24 mmol/L (23-31); Chloride 106 mmol/L (98-107); Estimated GFR 36; Globulin 3.6 g/dL (2.4-3.5); Glucose 112 mg/dL (83-110); Lipase 58 U/L (8-78); Magnesium 1.9 mg/dL (1.6-2.6); Potassium 2.9 mmol/L (3.5-5.1); Protein, Total 7.6 g/dL (5.8-8.1); Sodium 141 mmol/L (136-145)
[2023-01-25 20:23] LABS: Bacteria/HPF None Seen HPF (None Seen); Bilirubin Negative (Negative); Blood, Urine Negative (Negative); CAUTI Indications for Culture Pelvic or flank pain; Clarity Clear (Clear); Glucose, Urine (Dipstick) Normal (Negative); Ketone, Urine Negative (Negative); Leukocyte Negative Leu/uL (Negative); Nitrite Negative (Negative); Protein, Urine (Dipstick) 10 mg/dL (Neg-Trace); RBC/HPF None Seen HPF (0-3); Specific Gravity, Urine 1.008 (1.002-1.036); Squamous Epithelial None Seen HPF (0-3); Urobilinogen Normal mg/dL (Less than 2); WBC/HPF 0-3 HPF (0-3); pH, Urine 5.5 (5.0-9.0)
[2023-01-25 20:35] LABS: Urine Culture Reflex No No
[2023-01-25] MEDS ORDERED: Potassium Chloride 20 MEQ TAB ONE (21:01)
[2023-01-25] MEDS ORDERED: Ketorolac Tromethamine 30 MG/ML VIAL ONE (21:01)
== END 2023-01-25 21:22 | disposition home or self-care (01) ==
LOC: ERS 18:22
DX: K29.70 Gastritis, unspecified, without bleeding (principal); I13.0 Hypertensive heart and chronic kidney disease with heart failure and stage 1 through stage 4 chronic kidney disease, or unspecified chronic kidney disease; I50.9 Heart failure, unspecified; N18.30 Chronic kidney disease, stage 3 unspecified; E78.5 Hyperlipidemia, unspecified; J44.9 Chronic obstructive pulmonary disease, unspecified; F03.90 Unspecified dementia, unspecified severity, without behavioral disturbance, psychotic disturbance, mood disturbance, and anxiety; Z79.82 Long term (current) use of aspirin; Z86.73 Personal history of transient ischemic attack (TIA), and cerebral infarction without residual deficits; Z79.899 Other long term (current) drug therapy
CPT/HCPCS: 74177; 80053; 81001; 83605; 83690; 83735; 85025; 96374; J1885; Q9967

== ENCOUNTER 2023-07-05 20:09 | Emergency (ER) | payer MEDICARE, BC ==
[2023-07-05 21:52] LABS: #Basophils 0.03 10x3/uL (0.0-0.2); %Basophils 0.6 % (0.0-1.0); %Eosinophils 4.5 % (0.0-10.0); %Lymphocytes 19.3 % (21.0-51.0); %Monocytes 4.9 % (0.0-10.0); %Neutrophils 70.5 % (42.0-75.0); Hemoglobin 14.1 g/dL (14.0-18.0); Mean Corpuscular HGB CONC 32.8 g/dL (32.0-36.0); Mean Corpuscular Volume 82.2 fL (78.0-98.0); Mean Platelet Volume 11.9 fL (7.4-10.4); Platelet Count 169 10x3/uL (130-400); RBC Distribution Width 13.4 % (11.5-14.5); Red Blood Cell (RBC) Count 5.23 mill/uL (4.70-6.10)
[2023-07-05] MEDS ORDERED: Pantoprazole 40 MG VIAL ONE (22:07)
[2023-07-05] MEDS ORDERED: Morphine 4 MG/ML VIAL ONE (22:07)
[2023-07-05] MEDS ORDERED: Ondansetron PF 4 MG/2 ML Vial ONE (22:07)
[2023-07-05 22:09] LABS: CRP,High Sensitivity (Inhouse) 0.79 mg/dL (< or = 0.5)
[2023-07-05 22:11] LABS: ALT (SGPT) 13 U/L (8-55); AST (SGOT) 17 U/L (5-34); Albumin 3.6 g/dL (3.4-4.8); Alkaline Phosphatase 150 U/L (40-110); Anion Gap 15 mmol/L (10-20); BUN (Urea Nitrogen) 12 mg/dL (8.4-25.7); Bilirubin, Total 0.5 mg/dL (0.2-1.2); Calc. Creatinine Clearance 0 mL/min (70-130); Calcium 8.9 mg/dL (7.8-10.44); Carbon Dioxide 27 mmol/L (23-31); Chloride 104 mmol/L (98-107); Estimated GFR 27; Globulin 3.7 g/dL (2.4-3.5); Glucose 104 mg/dL (83-110); Potassium 2.7 mmol/L (3.5-5.1); Protein, Total 7.3 g/dL (5.8-8.1); Sodium 143 mmol/L (136-145)
[2023-07-05 22:15] LABS: Troponin I 0.114 ng/mL (< 0.028)
[2023-07-05] MEDS ORDERED: Potassium Chloride 20 MEQ TAB ONE (22:51)
[2023-07-05 23:32] LABS: Bilirubin Negative (Negative); Blood, Urine Negative (Negative); Glucose, Urine (Dipstick) Negative (Negative); Ketone, Urine Negative (Negative); Leukocyte Negative (Negative); Nitrite Negative (Negative); Protein, Urine (Dipstick) Negative (Neg-Trace); Urobilinogen 0.2 mg/dL (Less than 2); pH, Urine 7.5 (5.0-9.0)
[2023-07-05 23:33] LABS: Clarity Clear (Clear)
[2023-07-05 23:34] LABS: Bacteria/HPF None Seen HPF (None Seen); CAUTI Indications for Culture Alt mental st,lethar; RBC/HPF None Seen HPF (0-3); Squamous Epithelial 0-3 HPF (0-3); WBC/HPF None Seen HPF (0-3)
[2023-07-05 23:39] LABS: Urine Culture Reflex No No
[2023-07-06] MEDS ORDERED: Polyethylene Glycol 3350 17 GM Packet ONE (00:31)
== END 2023-07-06 01:04 | disposition home or self-care (01) ==
LOC: ERS 20:09
DX: K59.00 Constipation, unspecified (principal); I13.0 Hypertensive heart and chronic kidney disease with heart failure and stage 1 through stage 4 chronic kidney disease, or unspecified chronic kidney disease; I50.9 Heart failure, unspecified; N18.30 Chronic kidney disease, stage 3 unspecified; E78.5 Hyperlipidemia, unspecified; J44.9 Chronic obstructive pulmonary disease, unspecified; Z79.82 Long term (current) use of aspirin; Z79.899 Other long term (current) drug therapy
CPT/HCPCS: 74176; 80053; 81001; 83605; 83690; 84484; 85025; 86141; 93005; 96361; 96374; 96375; C9113; J2270; J2405

== ENCOUNTER 2024-03-24 12:57 | Inpatient (IN) | payer MEDICARE ==
[2024-03-24 14:55] LABS: #Basophils 0.03 10x3/uL (0.0-0.2); %Basophils 0.7 % (0.0-1.0); %Eosinophils 3.6 % (0.0-10.0); %Lymphocytes 23.9 % (21.0-51.0); %Monocytes 8.7 % (0.0-10.0); %Neutrophils 62.9 % (42.0-75.0); Hematocrit 32.4 % (42.0-52.0); Hemoglobin 10.3 g/dL (14.0-18.0); Mean Corpuscular HGB CONC 31.8 g/dL (32.0-36.0); Mean Corpuscular Hemoglobin 26.8 pg (27.0-31.0); Mean Corpuscular Volume 84.2 fL (78.0-98.0); Mean Platelet Volume 11.7 fL (7.4-10.4); Platelet Count 149 10x3/uL (130-400); RBC Distribution Width 13.4 % (11.5-14.5); Red Blood Cell (RBC) Count 3.85 mill/uL (4.70-6.10)
[2024-03-24 15:20] LABS: ALT (SGPT) Less than 7 U/L (Less than 45); AST (SGOT) 16 U/L (11-34); Albumin 2.7 g/dL (3.1-4.5); Alkaline Phosphatase 100 U/L (40-110); Anion Gap 10 mmol/L (10-20); BUN (Urea Nitrogen) 14 mg/dL (8.4-25.7); Bilirubin, Total 0.3 mg/dL (0.3-1.2); Calc. Creatinine Clearance 0 mL/min (70-130); Calcium 8.1 mg/dL (7.8-10.44); Carbon Dioxide 23 mmol/L (23-31); Chloride 111 mmol/L (98-107); Estimated GFR 28; Globulin 3.4 g/dL (2.4-3.5); Glucose 90 mg/dL (83-110); Potassium 3.5 mmol/L (3.5-5.1); Protein, Total 6.1 g/dL (5.8-8.1); Sodium 140 mmol/L (136-145)
[2024-03-24 15:23] LABS: Troponin I 0.126 ng/mL (< 0.028)
[2024-03-24 16:23] LABS: Bacteria/HPF 3+ HPF (None Seen); Bilirubin Negative (Negative); Blood, Urine Trace (Negative); CAUTI Indications for Culture Dysuria,urgency,freq; Clarity Turbid (Clear); Glucose, Urine (Dipstick) Normal (Negative); Ketone, Urine Negative (Negative); Leukocyte 500 Leu/uL (Negative); Nitrite Negative (Negative); Protein, Urine (Dipstick) 200 mg/dL (Neg-Trace); Specific Gravity, Urine 1.018 (1.002-1.036); Squamous Epithelial 0-3 HPF (0-3); Triple Phosphate Crystal 4+ HPF (None Seen); Urobilinogen Normal mg/dL (Less than 2); WBC/HPF Greater than 50 HPF (0-3); pH, Urine 8.5 (5.0-9.0)
[2024-03-24 16:25] LABS: Urine Culture Reflex Yes Yes
[2024-03-24] MEDS ORDERED: cefTRIAXone (ROCEPHIN) 2 GM VIAL ONE (17:48)
[2024-03-24] MEDS ORDERED: Sodium Chloride 0.9% 100 ML ONE (17:48)
[2024-03-24] MEDS ORDERED: Aspirin Chewable 81 MG TAB ONE (17:48)
[2024-03-24] MEDS ORDERED: Acetaminophen 325 MG TAB PO PRN (17:50)
[2024-03-24 21:55] LABS: Troponin I 0.139 ng/mL (< 0.028)
[2024-03-24 21:56] LABS: Troponin I 0.141 ng/mL (< 0.028)
[2024-03-24] MEDS: Sodium Chloride 0.9% 1,000 ML IV SCH (22:33)
[2024-03-25] MEDS: hydrALAZINE 25 MG TAB PO SCH ×2 (00:16→10:03)
[2024-03-25] MEDS ORDERED: Ondansetron ODT 4 MG TAB SL PRN (01:15)
[2024-03-25] MEDS ORDERED: Ondansetron PF 4 MG/2 ML Vial IVP PRN (01:15)
[2024-03-25 04:09] LABS: #Basophils 0.03 10x3/uL (0.0-0.2); %Basophils 0.7 % (0.0-1.0); %Eosinophils 4.1 % (0.0-10.0); %Lymphocytes 33.7 % (21.0-51.0); %Monocytes 8.4 % (0.0-10.0); %Neutrophils 52.9 % (42.0-75.0); Hematocrit 33.3 % (42.0-52.0); Hemoglobin 10.5 g/dL (14.0-18.0); Mean Corpuscular HGB CONC 31.5 g/dL (32.0-36.0); Mean Corpuscular Hemoglobin 26.9 pg (27.0-31.0); Mean Corpuscular Volume 85.4 fL (78.0-98.0); Platelet Count 121 10x3/uL (130-400); RBC Distribution Width 13.3 % (11.5-14.5)
[2024-03-25 04:28] LABS: Anion Gap 10 mmol/L (10-20); BUN (Urea Nitrogen) 15 mg/dL (8.4-25.7); Calc. Creatinine Clearance 31 mL/min (70-130); Carbon Dioxide 22 mmol/L (23-31); Chloride 112 mmol/L (98-107); Estimated GFR 35; Glucose 93 mg/dL (83-110); Potassium 3.4 mmol/L (3.5-5.1); Sodium 141 mmol/L (136-145)
[2024-03-25] MEDS ORDERED: NS 0.9% w/ 20 MEQ KCL 1,000 ML/1,000 ML BAG IV SCH (08:00)
[2024-03-25] MEDS: Potassium Chloride 20 MEQ TAB PO SCH (10:03)
[2024-03-25] MEDS: cloNIDine 0.1 MG TAB PO SCH (10:03)
[2024-03-25] MEDS: Potassium Chloride 10 MEQ TAB PO SCH (10:03)
[2024-03-25] MEDS: Aspirin 325 MG TAB PO SCH (10:03)
[2024-03-25] MEDS: Pantoprazole 40 MG VIAL IVP SCH (10:04)
[2024-03-25] MEDS: Enoxaparin 30 MG (0.3 mL) SYRINGE SC SCH (10:05)
[2024-03-25] MEDS ORDERED: Ondansetron ODT 4 MG TAB PO PRN (16:11)
[2024-03-25] MEDS: Ondansetron ODT 4 MG TAB PO SCH (18:09)
[2024-03-25] MEDS: cefTRIAXone\\ROCEPHIN 2 GM in Sodium Chloride 0.9% 100 ML IVPB SCH (18:09)
[2024-03-25] MEDS: Donepezil HCl 5 MG TAB PO SCH (20:38)
[2024-03-25] MEDS: Atorvastatin Calcium 20 MG TAB PO SCH (20:38)
[2024-03-26 04:13] LABS: #Basophils 0.04 10x3/uL (0.0-0.2); %Basophils 0.8 % (0.0-1.0); %Lymphocytes 23.6 % (21.0-51.0); %Monocytes 7.1 % (0.0-10.0); %Neutrophils 64.3 % (42.0-75.0); Hematocrit 33.9 % (42.0-52.0); Hemoglobin 10.5 g/dL (14.0-18.0); Mean Corpuscular Hemoglobin 26.4 pg (27.0-31.0); Mean Corpuscular Volume 85.4 fL (78.0-98.0); Mean Platelet Volume 11.6 fL (7.4-10.4); Platelet Count 142 10x3/uL (130-400); RBC Distribution Width 13.4 % (11.5-14.5); Red Blood Cell (RBC) Count 3.97 mill/uL (4.70-6.10)
[2024-03-26 04:34] LABS: Anion Gap 9 mmol/L (10-20); BUN (Urea Nitrogen) 13 mg/dL (8.4-25.7); Calc. Creatinine Clearance 30 mL/min (70-130); Carbon Dioxide 23 mmol/L (23-31); Chloride 112 mmol/L (98-107); Estimated GFR 33; Glucose 101 mg/dL (83-110); Magnesium 1.8 mg/dL (1.6-2.6); Potassium 3.4 mmol/L (3.5-5.1); Sodium 141 mmol/L (136-145)
[2024-03-26] MEDS: Levothyroxine Sodium 25 MCG TAB PO SCH (06:29)
[2024-03-26 10:02] VITALS: BMI 23.3
[2024-03-26] MEDS: Amlodipine 10 MG TAB PO SCH (23:35)
[2024-03-27 04:20] LABS: #Basophils Less than 0.03 10x3/uL (0.0-0.2); %Basophils 0.4 % (0.0-1.0); %Eosinophils 4.6 % (0.0-10.0); %Lymphocytes 21.4 % (21.0-51.0); %Monocytes 6.5 % (0.0-10.0); %Neutrophils 67.1 % (42.0-75.0); Mean Corpuscular HGB CONC 31.6 g/dL (32.0-36.0); Mean Corpuscular Hemoglobin 26.5 pg (27.0-31.0); Mean Corpuscular Volume 84.1 fL (78.0-98.0); Mean Platelet Volume 11.4 fL (7.4-10.4); Platelet Count 148 10x3/uL (130-400); RBC Distribution Width 13.4 % (11.5-14.5); Red Blood Cell (RBC) Count 4.52 mill/uL (4.70-6.10)
[2024-03-27 04:43] LABS: Anion Gap 11 mmol/L (10-20); BUN (Urea Nitrogen) 12 mg/dL (8.4-25.7); Calc. Creatinine Clearance 32 mL/min (70-130); Calcium 8.3 mg/dL (7.8-10.44); Carbon Dioxide 23 mmol/L (23-31); Chloride 111 mmol/L (98-107); Estimated GFR 36; Glucose 99 mg/dL (83-110); Potassium 3.5 mmol/L (3.5-5.1); Sodium 141 mmol/L (136-145)
[2024-03-27] MEDS: Pantoprazole 40 MG DR.TAB PO SCH (09:08)
[2024-03-27] MEDS: Enoxaparin 40 MG (0.4 mL) SYRINGE SC SCH (09:11)
[2024-03-27 16:39] VITALS: BP 165/90; TEMP 98.3
[2024-03-27] MEDS ORDERED: Amlodipine 10 MG TAB PO SCH (21:00)
== END 2024-03-27 16:27 | disposition home health service (06) | DRG 689 ==
LOC: ERS 12:57 → 2SE 17:33 → OBSVTOIN 03-25 10:57
PROVIDERS: ADMIT Internal Medicine; ATTEND Family Medicine
DX: N39.0 Urinary tract infection, site not specified (principal); I21.A1 Myocardial infarction type 2; I69.354 Hemiplegia and hemiparesis following cerebral infarction affecting left non-dominant side; N17.9 Acute kidney failure, unspecified; I12.9 Hypertensive chronic kidney disease with stage 1 through stage 4 chronic kidney disease, or unspecified chronic kidney disease; N18.30 Chronic kidney disease, stage 3 unspecified; J44.9 Chronic obstructive pulmonary disease, unspecified; E78.5 Hyperlipidemia, unspecified; F03.A0 Unspecified dementia, mild, without behavioral disturbance, psychotic disturbance, mood disturbance, and anxiety; E03.9 Hypothyroidism, unspecified; E87.6 Hypokalemia; R00.1 Bradycardia, unspecified; R41.0 Disorientation, unspecified; B96.4 Proteus (mirabilis) (morganii) as the cause of diseases classified elsewhere; Z79.899 Other long term (current) drug therapy; Z79.890 Hormone replacement therapy; Z99.3 Dependence on wheelchair; W19.XXXA Unspecified fall, initial encounter
CPT/HCPCS: 36415; 70450; 71045; 80048; 80053; 81001; 83605; 83735; 83880; 84484; 85025; 87040; 87077; 87086; 87186; 87428; 93005; 96374; 96376; G0378; J0696; J2470; J7030; Q0162